=== PATIENT | female | born 1990 | race Caucasian/White ===

== ENCOUNTER 2018-05-30 20:34 | Emergency (ER) | payer OTHER, MEDICAID, SELFPAY ==
[2018-05-30 21:23] VITALS: BP 165/95; PULSE 107; RESP 18; TEMP 39.9; O2SAT 98
[2018-05-30 22:55] VITALS: TEMP 39.9
[2018-05-30] MEDS: KETOROLAC 60 MG/2 ML VIAL IM (22:55)
[2018-05-30 23:12] VITALS: BP 102/80; PULSE 99; RESP 18; TEMP 38.8; O2SAT 96
[2018-05-30 23:23] VITALS: TEMP 38.8
--- NOTE | 2018-05-31 00:03 | ED.FEVER ---
HPI - Fever General Chief Complaint: Fever Stated Complaint: VOMITING, FEVER, SWOLLEN TONSILLS Time Seen by Provider: 05/30/18 23:11 Source: patient Mode of arrival: ambulatory Limitations: no limitations History of Present Illness HPI Narrative: Patient complains of sore throat, fever, and vomiting for the last 2-3 days. 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 However, she has a specific exposure that she knows of. Patient states she is otherwise generally healthy. She denies any runny nose or cough. No chest pain. No shortness of breath. No pain. No dysuria or back pain. No other complaints at this time. She states that her pain is 6/10, and it hurts very much to swallow. Nothing makes the pain better. Related Data Previous Rx's Medication Instructions Recorded azithromycin 500 mg PO DAILY 5 Days tab 05/31/18 Allergies Allergy/AdvReac Type Severity Reaction Status Date / Time Penicillins Allergy Hives Verified 05/30/18 21:22 Review of Systems Constitutional Denies chills, Reports fever(s), Denies lethargy and Denies weakness Eyes Denies change in vision, Denies eye discharge, Denies irritation and Denies loss of vision ENT Ears, Nose, Mouth, and Throat: Denies change in voice, Denies neck pain and Reports sore throat Cardiovascular Denies chest pain, Denies irregular heart rhythm, Denies lightheadedness, Denies palpitations, Denies dyspnea, Denies dyspnea on exertion and Denies orthopnea Respiratory Denies cough, Denies dyspnea, Denies dyspnea on exertion and Denies wheezing Gastrointestinal Gastrointestinal: Denies abdominal pain, Denies change in bowel habits, Denies diarrhea, Denies nausea and Denies vomiting Genitourinary Denies hematuria, Denies flank pain, Denies urinary incontinence and Denies urinary urgency Musculoskeletal Denies neck pain Integumentary/Breasts Denies pruritus, Denies erythema, Denies rash and Denies wounds Neurologic Denies confusion, Denies loss of vision and Denies weakness Psychiatric Denies anxiety, Denies confusion, Denies depression, Denies homicidal ideation and Denies suicidal ideation Endocrine Denies palpitations Hematologic/Lymphatic Denies easy bruising Allergic/Immunologic Denies wheezing [facility] Medical History Healthy adult (Acute) Social History Smoking Status: Current every day smoker Social History Smoking Status: Current every day smoker Exam Initial Vital Signs Initial Vital Signs: Vital Signs Temperature 103.9 F H 05/30/18 21:23 Pulse Rate 107 H 05/30/18 21:23 Respiratory Rate 18 05/30/18 21:23 Blood Pressure 165/95 H 05/30/18 21:23 Pulse Oximetry 98 05/30/18 21:23 Const General: cooperative and well developed Nutritional Appearance: well nourished Orientation: alert, awake, oriented x3 and not confused HENMT Head: normocephalic and atraumatic Ears: external ears normal Nose: external nose normal and No nasal discharge Face and sinus: sinuses nontender, face symmetric, no sinus tenderness and No dry mucous membranes Mouth: oral mucosae normal and moist mucous membranes Teeth and gingiva: dentition normal Throat: uvula midline and abnormal tonsil (Patient has tonsillar erythema and exudates. Tonsils are symmetrical.) Eyes General: appearance normal, both eyes and all related structures Eyelids: eyelids normal Conjunctivae: conjunctivae normal Sclera: sclerae normal Pupils: PERRL EOM: EOM intact bilaterally Neck Neck: normal visual inspection, trachea midline, No lymphadenopathy, No midline deformity and No JVD Lymphatic: No lymphedema Chest Chest: normal inspection of the chest Resp Effort & Inspection: normal respiratory effort, able to speak in complete sentences, no respiratory distress and no use of accessory muscles Auscultation: clear to auscultation bilaterally, no rales, no rhonchi and no wheezes Cardio Rate: regular rate Rhythm: regular rhythm Heart Sounds: no click, no gallops, no murmurs and no rubs Pulses: normal peripheral pulses GI Inspection: non-distended Palpation: soft, no hepatosplenomegaly, No guarding, No pulsatile mass and No tender Auscultation: normal bowel sounds Back/Spine/Pelvis Back: No CVA tenderness Cervical Spine: cervical ROM normal and No pain with cervical ROM Thoracic/Lumbar Spine: thoracic and lumbar spine normal to inspection Skin General: no rashes or lesions noted, No jaundice and No petechiae Neuro General: alert, oriented x3, gait normal and no focal motor deficits Speech: speech normal Extrem General: full ROM, no clubbing, cyanosis or edema, no pedal edema and no calf tenderness Psych Appearance: well kempt Mental Status: mental status grossly normal Attitude: cooperative Thought Content: normal and suicidality Judgment: judgment good Course Course Narrative: Patient was worked up with influenza testing and rapid strep, both which were negative. However, I felt the patient's clinical presentation and physical exam findings were consistent with strep pharyngitis,, and considered the possibility that the patient's symptoms were caused by a strain other than strep A. I did feel she should be treated with antibiotics, given the fever and the appearance of her throat. She was allergic to penicillin family antibiotics so she was started on azithromycin. Orders Ordered: Discontinued Medications Acetaminophen (Tylenol) 650 mg PO NOW ONE Stop: 05/31/18 00:01 Last Admin: 05/31/18 00:04 Dose: 650 mg Azithromycin (Zithromax 200 Mg/5 Ml) 500 mg PO DAILY ELÍAS Azithromycin (Zithromax) 500 mg PO NOW ONE Stop: 05/31/18 00:06 Last Admin: 05/31/18 00:06 Dose: 500 mg Ketorolac Tromethamine (Toradol) 60 mg IM NOW ONE Stop: 05/30/18 22:56 Last Admin: 05/30/18 22:55 Dose: 60 mg Prednisone (Deltasone) 40 mg PO NOW ONE Stop: 05/30/18 23:59 Last Admin: 05/31/18 00:04 Dose: 40 mg Vital Signs - 8 hr 05/30/18 21:23 05/30/18 22:55 05/30/18 23:12 Temperature 103.9 F H 103.9 F H 101.8 F H Pulse Rate 107 H 99 H Respiratory Rate 18 18 Blood Pressure 165/95 H Blood Pressure [Right Arm] 102/80 Pulse Oximetry 98 96 05/30/18 23:23 Temperature 101.9 F H Pulse Rate Respiratory Rate Blood Pressure Blood Pressure [Right Arm] Pulse Oximetry MDM - Fever Medical Records Attestation: I reviewed the patient's medical records. Lab Data Attestation: I reviewed the patient's lab results. Lab Results 05/30/18 Range/Units 22:05 Influenza A & B (PCR) Negative (Negative) Point of Care Testing Rapid Strep A Negative Discharge Plan Departure Patient Disposition: Home Clinical Impression: Strep pharyngitis Discharge Date/Time: 05/31/18 01:31 Interventions: ED Discharge Assessment Last Done: 05/31/18 00:51 Instructions: DI for Strep Throat Activity Restrictions/Additional Instructions: Your influenza test is negative, and her rapid strep test is also negative. However, your symptoms and the appearance of your throat is very much consistent with strep throat, and it is most likely that you either have a different strain of strep in the test evaluate for, or that the rapid strep, which is less accurate had a false negative. You been started on antibiotics for this. Please continue the antibiotics home, until your course is complete. If you do not feel better in a week, please follow up with your primary doctor. Prescriptions: New azithromycin 500 mg tablet 500 mg PO DAILY 5 Days RF: 0 Stand Alone Forms: Work Release Note
[2018-05-31 00:04] VITALS: TEMP 38.8
[2018-05-31] MEDS: ACETAMINOPHEN 325 MG TABLET 650 MG PO (00:04)
[2018-05-31] MEDS: predniSONE 20 MG TABLET 40 MG PO (00:04)
[2018-05-31] MEDS: AZITHROMYCIN 250 MG TABLET 500 MG PO (00:06)
[2018-05-31 00:37] LABS: Influenza A and B by PCR Rapid Negative (Negative)
[2018-05-31 00:51] VITALS: BP 114/95; PULSE 78; O2SAT 98
== END 2018-05-31 01:31 | disposition home or self-care (01) ==
PROVIDERS: Emergency Provider Emergency Medicine
DX: J02.0 Streptococcal pharyngitis (principal)
CPT/HCPCS: 87400; 87880; 96374; 99282; 99284; J1885

== ENCOUNTER 2019-01-24 12:04 | Emergency (ER) | payer OTHER, MEDICAID, SELFPAY ==
[2019-01-24 12:27] VITALS: BP 132/85; PULSE 73; RESP 18; TEMP 36.4; O2SAT 95
--- NOTE | 2019-01-24 14:21 | ED_ITS ---
HPI - Extremity Injury (Lower) General Chief Complaint: Extremity Injury, Lower Stated Complaint: left leg pain from a previous injury Time Seen by Provider: 01/24/19 13:51 Source: patient Mode of arrival: Wheelchair Limitations: no limitations History of Present Illness HPI Narrative: 28F daily smoker, with extensive history of left knee pain since an ACL tear many months ago. She's had appropriate follow up with ortho whom has requested an MRI, but was denied by [facility]. She twisted awkwardly yesterday and has more pain. She presents wearing a hinged knee brace. Denies any direct trauma or high velocity type injury, this was may early twisting. She denies any numbness, tingling or weakness MD complaint: knee injury Onset (ago): day(s) Place: home Severity: moderate Relieving factors: rest Exacerbating factors: movement and palpation Other symptoms: none Related Data Home Medications Medication Instructions Recorded Confirmed buspirone 10 mg PO TID PRN 01/24/19 01/24/19 citalopram 40 mg PO DAILY 01/24/19 01/24/19 clonazepam 1 mg PO BID PRN 01/24/19 01/24/19 hydroxyzine HCl 10 mg PO QID PRN 01/24/19 01/24/19 quetiapine 50 mg PO BEDTIME 01/24/19 01/24/19 Allergies Allergy/AdvReac Type Severity Reaction Status Date / Time Penicillins Allergy Hives Verified 01/24/19 12:31 Review of Systems Constitutional Constitutional: Denies chills, Denies fatigue, Denies fever(s), Denies frequent falls, Denies lethargy and Denies weakness Eyes Eyes: Denies change in vision, Denies eye discharge, Denies irritation and Denies loss of vision ENT Ears, Nose, Mouth, and Throat: Denies change in voice, Denies dizziness, Denies neck pain, Denies sore throat and Denies throat swelling Cardiovascular Cardiovascular: Denies chest pain, Denies irregular heart rhythm, Denies lightheadedness, Denies palpitations, Denies dyspnea, Denies dyspnea on exertion and Denies orthopnea Respiratory Respiratory: Denies cough, Denies dyspnea, Denies dyspnea on exertion and Denies wheezing Gastrointestinal Gastrointestinal: Denies abdominal pain, Denies change in bowel habits, Denies diarrhea, Denies nausea and Denies vomiting Genitourinary Genitourinary: Denies hematuria, Denies flank pain, Denies urinary incontinence and Denies urinary urgency Musculoskeletal Musculoskeletal: Denies back pain, Reports limited range of motion, Denies muscle weakness, Denies neck pain, Denies numbness and Denies tingling Integumentary/Breasts Skin/Breast: Denies pruritus, Denies erythema, Denies rash and Denies wounds Neurologic Neurologic: Denies behavioral changes, Denies confusion, Denies dizziness, Denies frequent falls, Denies loss of vision, Denies numbness, Denies tingling and Denies weakness Psychiatric Psychiatric: Denies anxiety, Denies behavioral changes, Denies confusion, Denies depression, Denies homicidal ideation and Denies suicidal ideation Endocrine Endocrine: Denies fatigue, Denies flushing and Denies palpitations Hematologic/Lymphatic Hematologic/Lymphatic: Denies easy bruising Allergic/Immunologic Allergic/Immunologic: Denies urticaria, Denies throat swelling and Denies wheezing Patient History Medical History Healthy adult (Acute) Social History Smoking Status: Current every day smoker alcohol intake frequency: a few times a week Substance Use Type: does not use Exam Narrative Exam Narrative: GEN: AOx3 and in mild distress EYES: Pupils are equal, round, and reactive to light and accommodation. Extraoccular muscles are intact bilaterally. There is no subconjunctival hemorrhage or exudate. CHEST: Lungs are clear to auscultation bilaterally and free of wheezes, rales, or rhonchi. Heart rate is regular rhythm, there are no murmurs, clicks, rubs, or gallops. There is no chest wall tenderness. ABD: Abdomen is soft and nontender. There is no guarding or rebound. Bowel sounds are normal in all 4 quadrants. There is no mass or organomegaly. EXT: Full but painful range of motion of left knee. No ligamentous laxity or instability. Mild effusion. SKIN: Warm, pink, and dry. No erythema or rash Initial Vital Signs Initial Vital Signs: Vital Signs Temperature 97.6 F 01/24/19 12:27 Pulse Rate 73 01/24/19 12:27 Respiratory Rate 18 01/24/19 12:27 Blood Pressure 132/85 01/24/19 12:27 Pulse Oximetry 95 01/24/19 12:27 Course Orders Ordered: ED Orders 01/24/19 14:59 XR knee LT 3V Stat Discontinued Medications Ketorolac Tromethamine (Toradol) 60 mg IM NOW ONE Stop: 01/24/19 15:36 Last Admin: 01/24/19 15:41 Dose: 60 mg Documented by: ANTHONY Vital Signs Vital signs: Vital Signs - 8 hr 01/24/19 12:27 01/24/19 15:54 Temperature 97.6 F Pulse Rate 73 72 Respiratory Rate 18 Blood Pressure 132/85 Blood Pressure [Left Arm] 117/87 Pulse Oximetry 95 98 MDM - Extremity Injury (Lower) Imaging Data Knee Xray: Radiologist's impression: [address] [address] XRay Report Signed Patient: Yojana Frank [facility]#: [id number] : 1990Acct:[id number] Age/Sex: 28 / FDate of Service: 01/24/19 Loc: ED Accession Number: [id number] Procedure: XR knee LT 3V Ordering Provider: Renato Beebe D.O. PROCEDURE: XR KNEE LT 1TO2V INDICATIONS: Repeat injury of known left MCL injury, increased pain TECHNIQUE: 2 views of the knee were acquired. COMPARISON: Outside Film, CR, XR KNEE 3 VIEWS LEFT, 11/14/2018, 13:58. FINDINGS: Bones: No fractures or dislocations. No suspicious bony lesions. Postsurgical change related to previous ACL reconstruction. Hardware appears intact. There is expected postoperative alignment. Soft tissues: Small joint effusion. IMPRESSION: Postsurgical changes as before. No fracture Small joint effusion, which appears new Dictated by: Fuad Leach M.D. on 01/24/2019 at 15:33 Approved by: Fuad Leach M.D. on 01/24/2019 at 15:35 Discharge Plan Departure Patient Disposition: Home Clinical Impression: Left knee sprain Qualifiers: Encounter type: initial encounter Involved ligament of knee: unspecified ligament Qualified Code(s): S83.92XA - Sprain of unspecified site of left knee, initial encounter Discharge Date/Time: 01/24/19 16:00 Instructions: DI for Knee Pain Activity Restrictions/Additional Instructions: *You have been diagnosed with [acute on chronic left knee pain with reassuring x-ray as interpreted by radiology] *What to do: *Take medications as directed *Follow up with your primary care provider in 2-3 days, call for an appointment. Let them know you were seen in the Emergency Department and that we ask that you be seen in follow up *Return to ER if you should have any new, worsening or concerning symptoms Prescriptions: No Action quetiapine 25 mg tablet 50 mg PO BEDTIME RF: 0 citalopram 40 mg tablet 40 mg PO DAILY RF: 0 clonazepam 1 mg tablet 1 mg PO BID PRN (Reason: Anxiety) RF: 0 buspirone 10 mg tablet 10 mg PO TID PRN (Reason: Anxiety) RF: 0 hydroxyzine HCl 10 mg tablet 10 mg PO QID PRN (Reason: Anxiety) RF: 0
--- NOTE | 2019-01-24 14:59 | DI.RAD.S_ITS ---
PROCEDURE: XR KNEE LT 1TO2V INDICATIONS: Repeat injury of known left MCL injury, increased pain TECHNIQUE: 2 views of the knee were acquired. COMPARISON: Outside Film, CR, XR KNEE 3 VIEWS LEFT, 11/14/2018, 13:58. FINDINGS: Bones: No fractures or dislocations. No suspicious bony lesions. Postsurgical change related to previous ACL reconstruction. Hardware appears intact. There is expected postoperative alignment. Soft tissues: Small joint effusion. IMPRESSION: Postsurgical changes as before. No fracture Small joint effusion, which appears new Dictated by: Fuad Leach M.D. on 01/24/2019 at 15:33 Approved by: Fuad Leach M.D. on 01/24/2019 at 15:35
[2019-01-24] MEDS: KETOROLAC 60 MG/2 ML VIAL IM (15:41)
--- NOTE | 2019-01-24 15:45 | PC.NURSE ---
Pt expressing anger because she is requesting narcotic pain medication and was given toradol. She continues to request narcotics. Discussed non pharmacologic pain control measures as well as managing chronic pain. Pt has a current orthopedic as well as person who is managing her workman's comp claim.
[2019-01-24 15:54] VITALS: BP 117/87; PULSE 72; O2SAT 98
== END 2019-01-24 16:00 | disposition home or self-care (01) ==
PROVIDERS: Emergency Provider Emergency Medicine
DX: S83.92XA Sprain of unspecified site of left knee, initial encounter (principal)
CPT/HCPCS: 73562; 96372; 99282; 99283; J1885

== ENCOUNTER 2020-01-22 20:00 | Emergency (ER) | payer OTHER, MEDICAID, SELFPAY ==
[2020-01-22 20:10] VITALS: BP 159/90; PULSE 110; RESP 16; TEMP 36.9; O2SAT 97; BMI 30.4
--- NOTE | 2020-01-22 20:21 | DI.RAD.S_ITS ---
PROCEDURE: XR KNEE LT 3V INDICATIONS: fall/knee pain TECHNIQUE: 3 views of the knee were acquired. COMPARISON: [facility], CR, XR KNEE ARTHRITIC SERIES LT, 09/10/2019, 15:12. FINDINGS: Bones: No fractures or dislocations. No suspicious bony lesions. Status post ACL repair. Lucency adjacent to orthopedic screw in the proximal tibia is stable compared to prior exam. Soft tissues: No joint effusion. No suspicious soft tissue calcifications. IMPRESSION: No fracture. No acute osseous lesion. If symptoms and/or clinical suspicion for pathology persists, further assessment with repeat radiographs (7-10 days) or advanced imaging (e.g. CT, MRI or bone scan) may be helpful. Dictated by: Aissatou Mars MD, PhD on 01/22/2020 at 20:54 Approved by: Aissatou Mars MD, PhD on 01/22/2020 at 20:55
--- NOTE | 2020-01-22 21:07 | ED.LOWEXIN ---
HPI - Extremity Injury (Lower) General Chief Complaint: Extremity Injury, Lower Stated Complaint: left knee pain Time Seen by Provider: 01/22/20 20:20 History of Present Illness HPI Narrative: 29-year-old woman with a prior history of left knee ACL repair and revision already scheduled presents after tripping over the stairs going up into her house and landing on both knees. Severe pain and swelling of the left knee and she is unable to bear weight. She has no other injuries related to this fall. Related Data Home Medications Medication Instructions Recorded Confirmed buspirone 10 mg PO TID PRN 01/24/19 01/24/19 citalopram 40 mg PO DAILY 01/24/19 01/24/19 clonazepam 1 mg PO BID PRN 01/24/19 01/24/19 hydroxyzine HCl 10 mg PO QID PRN 01/24/19 01/24/19 quetiapine 50 mg PO BEDTIME 01/24/19 01/24/19 Previous Rx's Medication Instructions Recorded oxycodone-acetaminophen 1 tab PO Q8H PRN #10 tab 01/22/20 Allergies Allergy/AdvReac Type Severity Reaction Status Date / Time Penicillins Allergy Hives Verified 01/24/19 12:31 Review of Systems Review of Systems Narrative: Pertinent positive and negative findings as per HPI Remainder of review of systems is otherwise unremarkable for Constitutional: Fevers, chills, weakness ENT: No sore throat, neck pain, ear pain CV: Chest pain, palpitations, dyspnea on exertion Respiratory: Cough, wheeze, dyspnea GI: Nausea, vomiting, diarrhea, : Dysuria, hematuria, flank pain Patient History Medical History Healthy adult (Acute) Surgical History S/P ACL repair (Acute) Social History Smoking Status: Current every day smoker Smoking Status: Current every day smoker alcohol intake frequency: a few times a week Substance Use Type: does not use Exam Narrative Exam Narrative: General: Alert appropriate in no acute distress Respiratory: Able to speak in full sentences, no obvious respiratory distress Skin: No obvious rashes, warm and dry Neurologic: Grossly intact no obvious asymmetries or abnormalities Psych, appropriate insight and affect, cooperative Extremities: Right knee with bruising around the patella with full range of motion no obvious abrasions no effusion mild tenderness only, neurovascularly intact. Left knee with significantly more pain, range of motion testing is difficult because of pain and effusion present but I am concerned that there is quite a bit of medial laxity. Neurovascularly intact distally Initial Vital Signs Initial Vital Signs: Vital Signs Temperature 98.4 F 01/22/20 20:10 Pulse Rate 110 H 01/22/20 20:10 Respiratory Rate 16 01/22/20 20:10 Blood Pressure 159/90 H 01/22/20 20:10 Pulse Oximetry 97 01/22/20 20:10 Course Orders Ordered: ED Orders 01/22/20 20:21 XR knee LT 3V Stat Discontinued Medications Ketorolac Tromethamine (Toradol) 30 mg IM NOW ONE Stop: 01/22/20 20:32 Last Admin: 01/22/20 21:08 Dose: 30 mg Documented by: GLORIA Oxycodone/Acetaminophen (Percocet 5/325) 1 tab PO NOW ONE Stop: 01/22/20 21:18 Last Admin: 01/22/20 21:26 Dose: 1 tab Documented by: GLORIA Oxycodone/Acetaminophen (Endocet 5/325 Prepack) 1 bottle MISC SEEINSTR ONE Stop: 01/22/20 21:18 Last Admin: 01/22/20 21:26 Dose: 1 bottle Documented by: GLORIA Vital Signs Vital signs: Vital Signs - 8 hr 01/22/20 20:10 Temperature 98.4 F Pulse Rate 110 H Respiratory Rate 16 Blood Pressure 159/90 H Pulse Oximetry 97 MDM - Extremity Injury (Lower) Medical Records Attestation: I reviewed the patient's medical records. Imaging Data X-ray left knee: Radiologist's Impression: FINDINGS: Bones: No fractures or dislocations. No suspicious bony lesions. Status post ACL repair. Lucency adjacent to orthopedic screw in the proximal tibia is stable compared to prior exam. Soft tissues: No joint effusion. No suspicious soft tissue calcifications. IMPRESSION: No fracture. No acute osseous lesion. If symptoms and/or clinical suspicion for pathology persists, further assessment with repeat radiographs (7-10 days) or advanced imaging (e.g. CT, MRI or bone scan) may be helpful. Dictated by: Aissatou Mars MD, PhD on 01/22/2020 at 20:54 MDM Narrative Medical decision making narrative: Mechanical injury to the left knee after a fall. No fractures on x-ray concern for medial collateral ligament laxity and setting of and knee that was already problematic and scheduled for ACL and meniscal repair within the next 6 weeks. She has knee brace and crutches to use at home. 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 We had a nice discussion regarding pain control. She has successfully used short doses of narcotics for acute pain and feels comfortable with adding this to her regimen for the next 2-3 days only . She is safe for home discharge Discharge Plan Departure Patient Disposition: Home Clinical Impression: Knee Injury Qualifiers: Encounter type: initial encounter Laterality: left Qualified Code(s): S89.92XA - Unspecified injury of left lower leg, initial encounter Fall Qualifiers: Encounter type: initial encounter Qualified Code(s): W19.XXXA - Unspecified fall, initial encounter Instructions: DI for Knee Pain Activity Restrictions/Additional Instructions: I am sorry that you fell today. Your left knee clearly is injured and your developing an effusion. It does not appear to be blood inside the joint. Your x-ray does not show any acute fractures. You are tender enough that it difficult to do a complete knee exam but I am a bit worried that the inside portion of your knee (the medial collateral ligament) may have been injured. Please keep your scheduled preop appointment on the for anticipated surgery on this knee. Please let the PA note that you did fall, further injury to the knee and x-rays have been done in the emergency department Using 400 mg of ibuprofen (2 [id number] pills) and 1 Tylenol every 6 hours can be very helpful in controlling pain. For more severe pain taking tramadol plus Tylenol can be helpful. And for the pain your experiencing this evening, using to ibuprofen and 1 Percocet every 6 hours will be most effective. Please continue to ice and elevate the knee. You will need to use the knee brace and crutches that you have at home. Once the pain settles down if the knee feels unstable as your walking on it please continue the brace until you are seen by the orthopedist. I hope you heal quickly Prescriptions: New oxycodone-acetaminophen 5-325 mg tablet 1 tab PO Q8H PRN (Reason: pain) Qty: 10 RF: 0 No Action quetiapine 25 mg tablet 50 mg PO BEDTIME RF: 0 citalopram 40 mg tablet 40 mg PO DAILY RF: 0 clonazepam 1 mg tablet 1 mg PO BID PRN (Reason: Anxiety) RF: 0 buspirone 10 mg tablet 10 mg PO TID PRN (Reason: Anxiety) RF: 0 hydroxyzine HCl 10 mg tablet 10 mg PO QID PRN (Reason: Anxiety) RF: 0
[2020-01-22] MEDS: KETOROLAC 60 MG/2 ML VIAL 30 MG IM (21:08)
[2020-01-22] MEDS: OXYCODONE/ACETAMINOPHEN 5/325 TABLET 1 TAB PO (21:26)
[2020-01-22] MEDS: OXYCODONE/APAP 5/325 PREPACK 1 BOTTLE MISC (21:26)
[2020-01-22 21:30] VITALS: BP 126/78; PULSE 88; RESP 16; O2SAT 97
== END 2020-01-22 21:30 | disposition home or self-care (01) ==
PROVIDERS: Emergency Provider Emergency Medicine
DX: S89.92XA Unspecified injury of left lower leg, initial encounter (principal); W10.9XXA Fall (on) (from) unspecified stairs and steps, initial encounter
CPT/HCPCS: 73562; 96372; 99283; J1885

== ENCOUNTER → 2021-03-31 16:04 | Outpatient (CLI) | payer OTHER, MEDICAID, SELFPAY ==
[2021-03-31 16:59] LABS: Influenza A - CEPHEID Flu A NEGATIVE (NEGATIVE); Influenza B - CEPHEID Flu B NEGATIVE (NEGATIVE)
[2021-03-31 17:03] LABS: COVID-19 CEPHEID PCR (VTM/NP) POSITIVE (Negative)
== END ==
PROVIDERS: Referring Provider Physician Assistant; Visit Provider Physician Assistant
DX: U07.1 COVID-19 (principal); J06.9 Acute upper respiratory infection, unspecified; Z20.822 Contact with and (suspected) exposure to COVID-19
CPT/HCPCS: 87502; U0003

== ENCOUNTER → 2021-11-17 17:40 | Outpatient (CLI) | payer OTHER, MEDICAID, SELFPAY ==
--- NOTE | 2021-11-17 17:41 | DI.RAD.S_ITS ---
PROCEDURE: XR RIBS LT MIN 3V W CXR1V INDICATIONS: left posterior rib pain TECHNIQUE: 2 views of the left ribs were acquired, along with a single view chest. COMPARISON: None. FINDINGS: Surgical changes and devices: None. Bones and chest wall: No fractures or dislocations. No suspicious bony lesions. Overlying soft tissues appear unremarkable. Lungs and pleura: No pleural effusions or pneumothorax. Lungs appear clear. Mediastinum: Mediastinal contours appear normal. Heart size is normal. IMPRESSION: No displaced rib fractures. Dictated by: Ton Artis M.D. on 11/17/2021 at 18:41 Approved by: Ton Artis M.D. on 11/17/2021 at 18:42
== END ==
PROVIDERS: PCP Student in an Organized Health Care Education/Training Program; Referring Provider Registered Nurse; Visit Provider Registered Nurse
DX: R07.81 Pleurodynia (principal)
CPT/HCPCS: 71101

== ENCOUNTER 2022-01-31 18:14 | Emergency (ER) | payer OTHER, MEDICAID, SELFPAY ==
[2022-01-31] VITALS (15 sets, daily range): BP systolic 105–160; BP diastolic 56–101; PULSE 65–110; RESP 20–23; TEMP 36.8–38.3; O2SAT 95–97
--- NOTE | 2022-01-31 18:25 | DI.RAD.S_ITS ---
PROCEDURE: XR CHEST 1V INDICATIONS: suspected sepsis TECHNIQUE: One view of the chest was acquired. COMPARISON: [facility], CR, XR RIBS LT MIN 3V W CXR1V, 11/17/2021, 17:53. FINDINGS: Surgical changes and devices: None. Lungs and pleura: No acute consolidation. There is a small nodular opacity projecting over the right mid lung measuring up to 0.7 cm redemonstrated. No pleural effusions or pneumothorax. Mediastinum: Mediastinal contours appear normal. Heart size is normal. Bones and chest wall: No suspicious bony lesions. Overlying soft tissues appear unremarkable. IMPRESSION: 1. No evidence of pneumonia. 2. Small nodular opacity projecting over the right mid lung may represent confluence of vascular and bony structures versus a pulmonary nodule. Finding is unchanged from the prior study. Consider follow-up chest x-ray in 12 months to demonstrate stability. Dictated by: Raman Mueller M.D. on 01/31/2022 at 21:19 Approved by: Raman Mueller M.D. on 01/31/2022 at 21:22
[2022-01-31 18:49] LABS: Add Manual Diff / Slide Review NO; Basophils Absolute Auto 100 /uL (0-100); Basophils Percent Auto 0.4 % (0-2); Eosinophils Absolute Auto 100 /uL (0-450); Eosinophils Percent Auto 0.6 % (2-4); Hematocrit 41.2 % (36-46); Lymphocytes Absolute Auto 2200 /uL (1100-4500); Lymphocytes Percent Auto 16.6 % (25-40); Mean Corpuscular Hemoglobin 29.2 PG (26-34); Mean Corpuscular Volume 85.9 fL (80-100); Monocytes Absolute Auto 1000 /uL (0-900); Monocytes Percent Auto 7.8 % (3-14); Neutrophils Absolute Auto 9800 /uL (1500-7000); Neutrophils Percent Auto 74.6 % (50-75); Platelet Count 289 X10^3/uL (150-400); White Blood Cell Count 13.1 X10^3/uL (4.5-11.0)
--- NOTE | 2022-01-31 18:52 | ED.SEPSIS ---
HPI - Sepsis General Chief Complaint: Abdominal Pain Mode of arrival: Ambulatory Source: patient Evaluation Sepsis Screen: Possible Sepsis Risk Sepsis Infection Criteria Present: Suspected New Infection Narrative: 31-year-old female smoker with non contributory medical history presents with a chief complaint of left lower quadrant pain with some radiation to her back over the past 24 hours or so. She states that the pain comes and goes without any apparent pattern and denies obvious provocation or palliation. She has no dysuria, frequency or urgency but does report blood in her urine. She denies any runny nose, sneezing or cough. She is had no chest pain, shortness of breath. She denies vaginal bleeding or discharge. Review of Systems Review of Systems Narrative: GENERAL: See HPI HEENT: Denies sinus pain, ear pain, sore throat, difficulty swallowing, dizziness. RESPIRATORY: Denies dyspnea, cough, wheezing, hemoptysis, sputum. CARDIOVASCULAR: Denies chest pain, palpitations, orthopnea, edema, GASTROINTESTINAL: See HPI : See HPI MUSCULOSKELETAL: denies weakness, joint pain, or bony pain SKIN: Denies rash, skin lesions, or other NEUROLOGIC: Denies weakness, headache, numbness, change in speech, confusion, seizures, incoordination. PSYCHIATRIC: No concerning psychosocial issues. 12 point review of systems is negative except for those stated above Patient History Medical History (Updated 01/31/22 @ 22:36 by Renato Beebe DO) Healthy adult Surgical History S/P ACL repair Social History Smoking Status: Current every day smoker Smoking Status: Current every day smoker alcohol intake frequency: a few times a week Substance Use Type: does not use Exam Narrative Exam Narrative: GENERAL: [31] year old patient appears stated age. Well-developed patient, in mild distress. Tearful, rubbing her left side, pacing HEAD: Atraumatic. Normocephalic. EYES: Pupils equal round and reactive. Extraocular motions intact. No scleral icterus. No injection or drainage. ENT: Nose without bleeding, purulent drainage. Throat without erythema, tonsillar hypertrophy or exudate. Airway patent. NECK: Trachea midline. Non tender CARDIOVASCULAR: Regular rate and rhythm without murmurs, gallops, or rubs. RESPIRATORY: Clear to auscultation. Breath sounds equal bilaterally. No wheezes, rales, or rhonchi. GASTROINTESTINAL: Abdomen soft, non-tender, nondistended. EXTREMITIES: No edema or joint tenderness. BACK: Nontender without deformity or crepitance. No flank tenderness. NEURO: AOx3. SKIN: No rash or erythema of visible areas Initial Vital Signs Initial Vital Signs: Vital Signs Temperature 101.0 F H 01/31/22 18:21 Pulse Rate 110 H 01/31/22 18:21 Respiratory Rate 22 01/31/22 18:21 Blood Pressure 160/101 H 01/31/22 18:21 Pulse Oximetry 97 01/31/22 18:21 Oxygen Delivery Method 01/31/22 18:21 Course Orders Ordered: ED Orders 01/31/22 19:04 Urine Culture Stat Urine Microscopic Stat 01/31/22 19:20 Blood Culture Stat 01/31/22 19:54 COVID19 -Nasal RAPID/Pre-Proc Stat 01/31/22 20:23 CT kidney ureter bladder (KUB) Stat 01/31/22 21:41 US pelvic complete Stat Discontinued Medications Hydrocodone Bitart/Acetaminophen (Hydrocodone/Acet 5/325 Prepack) 1 bottle MISC SEEINSTR ONE Stop: 01/31/22 21:42 Last Admin: 01/31/22 22:49 Dose: 1 bottle Documented By: MARKOS Hydromorphone HCl (Hydromorphone 0.5 Mg Inj) 0.5 mg IV NOW ONE Stop: 01/31/22 20:11 Last Admin: 01/31/22 20:14 Dose: 0.5 mg Documented By: JALIL Sodium Chloride (Normal Saline 0.9%) 1,000 mls @ 1,000 mls/hr IV BOLUS ONE Stop: 01/31/22 19:24 Last Infusion: 01/31/22 21:10 Dose: 0 mls/hr Documented By: Admin: 01/31/22 19:18 Dose: 1,000 mls/hr Documented By: PRESLEY Lidocaine HCl 6.1 ml/ Sodium (Chloride) 56.1 mls @ 336.6 mls/hr IV NOW ONE Stop: 01/31/22 20:36 Last Infusion: 01/31/22 21:35 Dose: 0 mls/hr Documented By: Admin: 01/31/22 21:22 Dose: 336.6 mls/hr Documented By: MARKOS Ketorolac Tromethamine (Ketorolac 30 Mg/Ml Vial) 15 mg IV NOW ONE Stop: 01/31/22 19:30 Last Admin: 01/31/22 19:35 Dose: 15 mg Documented By: PRESLEY Ondansetron HCl (Ondansetron 4 Mg/2 Ml Inj) 4 mg IV NOW ONE Stop: 01/31/22 18:26 Last Admin: 01/31/22 21:10 Dose: Not Given Documented By: MARKOS Ondansetron HCl (Ondansetron 4 Mg Odt) 4 mg SL NOW ONE Stop: 01/31/22 18:26 Last Admin: 01/31/22 19:34 Dose: Not Given Documented By: PRESLEY Ondansetron HCl (Ondansetron 4 Mg Odt Prepack) 1 bottle MISC SEEINSTR ONE Stop: 01/31/22 21:43 Last Admin: 01/31/22 22:49 Dose: 1 bottle Documented By: MARKOS Vital Signs Vital signs: Vital Signs - 8 hr 01/31/22 20:00 01/31/22 20:00 01/31/22 20:34 Temperature Pulse Rate 74 93 H Respiratory Rate 20 Blood Pressure 116/56 L Pulse Oximetry 96 97 Oxygen Delivery Method Room Air 01/31/22 21:00 01/31/22 21:23 01/31/22 21:23 Temperature Pulse Rate 83 78 Respiratory Rate 20 Blood Pressure 129/60 Pulse Oximetry 95 95 Oxygen Delivery Method 01/31/22 21:30 01/31/22 21:30 01/31/22 22:46 Temperature 98.3 F Pulse Rate 79 Respiratory Rate 23 Blood Pressure 105/72 Pulse Oximetry 96 Oxygen Delivery Method Room Air 01/31/22 22:00 01/31/22 22:30 01/31/22 22:42 Temperature Pulse Rate 74 83 65 Respiratory Rate 20 20 20 Blood Pressure Pulse Oximetry 95 97 Oxygen Delivery Method Room Air 01/31/22 22:42 Temperature Pulse Rate Respiratory Rate Blood Pressure 121/84 Pulse Oximetry Oxygen Delivery Method Sepsis Evaluation (ED) Triage Screening Sepsis Screen: Possible Sepsis Risk Level 1 - Infection Sepsis Infection Criteria Present: Suspected New Infection Response It is my opinion that his patient have a likely infectious etiology for meeting sepsis criteria: Does Not Fluid calculation based on 30 mL/kg within 1hr of criteria: ABW used Antibiotics initiated within 1 hr of Sepis dx: No Tissue Perfusion Reassessed within 6 hrs of infusion start time: No MDM - Sepsis Lab Data Result diagrams: 01/31/22 18:28 01/31/22 18:28 Labs: Lab Results 01/31/22 01/31/22 01/31/22 Range/Units 18:28 18:28 18:28 WBC 13.1 H (4.5-11.0) X10^3/uL RBC 4.80 (4.0-5.2) X10^6/uL Hgb 14.0 (12.0-16.0) g/dL Hct 41.2 (36-46) % MCV 85.9 (80-100) fL MCH 29.2 (26-34) PG MCHC 34.0 (30-36) % RDW 14.0 (11.6-14.8) % Plt Count 289 (150-400) X10^3/uL Neut % (Auto) 74.6 (50-75) % Lymph % (Auto) 16.6 L (25-40) % [place] % (Auto) 7.8 (3-14) % Eos % (Auto) 0.6 L (2-4) % Baso % (Auto) 0.4 (0-2) % Neut # (Auto) 9800 H (3575-6675) /uL Lymph # (Auto) 2200 (1748-7180) /uL [place] # (Auto) 1000 H (0-900) /uL Eos # (Auto) 100 (0-450) /uL Baso # (Auto) 100 (0-100) /uL PT 12.1 (10.1-12.7) SECONDS INR 1.1 (0.9-1.3) APTT 32 (26-36) SECONDS Sodium 136 L (137-145) mmol/L Potassium 3.5 (3.4-5.1) mmol/L Chloride 99 (98-107) mmol/L Carbon Dioxide 27 (22-32) mmol/L BUN 16 (7-17) mg/dL Creatinine 0.70 (0.52-1.04) mg/dL Estimated GFR > 60 (>60) mL/min BUN/Creatinine Ratio 22.9 H (6-22) Glucose 104 H (70-100) mg/dL Lactate (0.7-2.1) mmol/L Calcium 9.7 (8.4-10.2) mg/dL Total Bilirubin 0.5 (0.2-1.3) mg/dL AST 22 (14-36) IU/L ALT 14 (<35) IU/L Alkaline Phosphatase 96 (38-126) U/L Total Protein 8.0 (6.3-8.2) g/dL Albumin 4.8 (3.5-5.0) g/dL Globulin 3.2 (1.7-4.1) g/dL Albumin/Globulin Ratio 1.5 (1.0-2.8) Lipase 248 (23-300) U/L Procalcitonin 0.03 (<0.5) ng/mL Urine RBC (0-5/HPF) Urine WBC (0-5/HPF) Ur Squamous Epith Cells (0-5/HPF) Amorphous Sediment Urine Bacteria (None) Ur Culture Indicated? SARS-CoV-2 (PCR) (Negative) 01/31/22 01/31/22 01/31/22 Range/Units 18:28 19:04 19:54 WBC (4.5-11.0) X10^3/uL RBC (4.0-5.2) X10^6/uL Hgb (12.0-16.0) g/dL Hct (36-46) % MCV (80-100) fL MCH (26-34) PG MCHC (30-36) % RDW (11.6-14.8) % Plt Count (150-400) X10^3/uL Neut % (Auto) (50-75) % Lymph % (Auto) (25-40) % [place] % (Auto) (3-14) % Eos % (Auto) (2-4) % Baso % (Auto) (0-2) % Neut # (Auto) (9319-5043) /uL Lymph # (Auto) (4553-9323) /uL [place] # (Auto) (0-900) /uL Eos # (Auto) (0-450) /uL Baso # (Auto) (0-100) /uL PT (10.1-12.7) SECONDS INR (0.9-1.3) APTT (26-36) SECONDS Sodium (137-145) mmol/L Potassium (3.4-5.1) mmol/L Chloride (98-107) mmol/L Carbon Dioxide (22-32) mmol/L BUN (7-17) mg/dL Creatinine (0.52-1.04) mg/dL Estimated GFR (>60) mL/min BUN/Creatinine Ratio (6-22) Glucose (70-100) mg/dL Lactate 0.8 (0.7-2.1) mmol/L Calcium (8.4-10.2) mg/dL Total Bilirubin (0.2-1.3) mg/dL AST (14-36) IU/L ALT (<35) IU/L Alkaline Phosphatase (38-126) U/L Total Protein (6.3-8.2) g/dL Albumin (3.5-5.0) g/dL Globulin (1.7-4.1) g/dL Albumin/Globulin Ratio (1.0-2.8) Lipase (23-300) U/L Procalcitonin (<0.5) ng/mL Urine RBC 10-30/hpf H (0-5/HPF) Urine WBC 1-5/hpf (0-5/HPF) Ur Squamous Epith Cells 1-5 /hpf (0-5/HPF) Amorphous Sediment 3+ Urine Bacteria Few (2-10) H (None) Ur Culture Indicated? Specimen cultured SARS-CoV-2 (PCR) Negative (Negative) Point of Care Testing Test Results Negative Imaging Data CT scan - abdomen/pelvis: Radiologist's Impression: ? Chart Viewer Diagnostics Subcategory All Activity ??:?? All Time ??:?? All Subcategories Filter Laboratory Imaging Microbiology Pathology Blood Bank Tests Cardiovascular Other Specialty DATE TYPE STATUS REF RANGE/AUTHOR Hx Today 20:23 Abdomen/Pelvis CT Signed Raman Mueller Today 18:25 Chest X-Ray Signed Raman Mueller 11/17/21 17:41 Ribs X-Ray Signed Ton Artis 01/22/20 20:21 Knee X-Ray Signed Aissatou Mars 01/24/19 14:59 Knee X-Ray Signed Fuad Leach Jayla D ED 31, F?1990 MRN#? [id number] REG ER,?Main ED??R07?? 81.193kg ? Abdominal Pain Acc#? [id number] Resus Status Not Ordered No Hx Avail Special Indicators No Data to Display Home Meds Not Confirmed Prescription Monitoring Program Total 52.5 MME/Day Unconfirmed MEDICATIONS (INSTRUCTIONS) LAST TAKEN Active ??buspirone ??10 mgPOTIDPRNAnxiety ??citalopram ??40 mgPODAILY ??clonazepam ??1 mgPOBIDPRNAnxiety ??hydroxyzine HCl ??10 mgPOQIDPRNAnxiety ??methocarbamol 500 mg tablet ??500 mgPOQIDPRNback spasms#20 tabs ??oxycodone-acetaminophen ??1 [id number]#10 tabs 22.5 MME/Day ??oxycodone-acetaminophen 5 mg-325 mg tablet ??1 [id number]#10 tabs 30 MME/Day ??quetiapine ??50 mgPOBEDTIME Allergies Penicillins Hives Problems ? ONSET Rib pain on left side S/P ACL repair Healthy adult Vital Signs Today 21:30 BP 105/72? Pulse 79? Resp 23? O2 Sat 96? Delivery Room Air? Diagnostics Reports Yojana Frank??31??F??1990 ? Allergy/Adv: Penicillins Close Abdomen/Pelvis CT (Signed) MuellerRaman - 01/31/22 Chest X-Ray (Signed) Raman Mueller - 01/31/22 Ribs X-Ray (Signed) Ton Artis - 11/17/21 Knee X-Ray (Signed) Aissatou Mars - 01/22/20 Knee X-Ray (Signed) Fuad Leach - 01/24/19 [place] [address] CT Scan Report Signed Patient: Yojana Frank MR#: [id number] : 1990 Acct:[id number] Age/Sex: 31 / F Date of Service: 01/31/22 Loc: ED Accession Number: [id number] ?? Procedure: CT kidney ureter bladder (KUB) Ordering Provider: Renato Beebe D.O. PROCEDURE:? CT KIDNEY URETER BLADDER (KUB) ? INDICATIONS:? flank pain, hematuria, stone? ? TECHNIQUE:? Axial sections were acquired from the lung bases to the pubic symphysis.? Coronal and sagittal reformats were performed.? For radiation dose reduction, the following was used: ?automated exposure control, adjustment of mA and/or kV according to patient size.? ? COMPARISON:? None. ? FINDINGS:? Image quality:? Excellent.? ? Lung bases:? There is minimal atelectasis.? ? Heart:? Heart is normal in size. ? URINARY: Right Kidney and Ureter: ? No stones or hydronephrosis.? No hydroureter.? ? Left Kidney and Ureter: ? No stones or hydronephrosis.? No hydroureter. ? Bladder:? Normal wall thickness. No stones. ? ? ? ABDOMEN: Liver:? Noncontrast evaluation of the liver demonstrates no discrete? mass. Gallbladder:? Within normal limits without calcified gallstones.? ? Biliary ducts:? No biliary ductal dilatation.? ? Pancreas:? Unremarkable.? ? Spleen:? Normal in size.? ? Adrenal Glands:? No adrenal nodules.? ? ? Stomach and Bowel:? Stomach, small bowel loops, and colon are normal in caliber and wall thickness.? The appendix is normal in appearance.? There is colonic diverticulosis without acute diverticulitis.? Peritoneum:? No abnormal intraperitoneal fluid.? No free air.? ? Ventral Wall: ? No hernia.? Abdominal Nodes:? No retroperitoneal or mesenteric adenopathy by size criteria.? Vessels:? Aorta and inferior vena cava are normal in size.? ? PELVIS: Pelvic Organs:? Unremarkable.? ? Pelvic Nodes: No enlarged lymph nodes.? Miscellaneous: No inguinal hernias identified. ? ? ? Bones:? Visualized osseous structures demonstrate no suspicious focal lesions. ? IMPRESSION:? ? 1. No acute intra-abdominal abnormality.? Specifically, no evidence of nephrolithiasis or obstructive uropathy. ? 2. No evidence of appendicitis. ? 3. Colonic diverticulosis without acute diverticulitis.? ? Dictated by: Raman Mueller M.D. on 01/31/2022 at 21:31 ? ? Approved by: Raman Mueller M.D. on 01/31/2022 at 21:33 ? Chest x-ray: Radiologist's Impression: [address] [address] XRay Report Signed Patient: Yojana Frank MR#: [id number] : 1990 Acct:[id number] Age/Sex: 31 / F Date of Service: 01/31/22 Loc: ED Accession Number: [id number] ?? Procedure: XR chest 1V Ordering Provider: Renato Beebe D.O. PROCEDURE:? XR CHEST 1V ? INDICATIONS:? suspected sepsis ? TECHNIQUE:? One view of the chest was acquired.? ? COMPARISON:? [facility], CR, XR RIBS LT MIN 3V W CXR1V, 11/17/2021, 17:53. ? FINDINGS:? ? Surgical changes and devices:? None.? ? Lungs and pleura:? No acute consolidation.? There is a small nodular opacity projecting over the right mid lung measuring up to 0.7 cm redemonstrated.? No pleural effusions or pneumothorax.? ? Mediastinum:? Mediastinal contours appear normal.? Heart size is normal.? ? Bones and chest wall:? No suspicious bony lesions.? Overlying soft tissues appear unremarkable.? ? IMPRESSION:? ? 1. No evidence of pneumonia. ? 2. Small nodular opacity projecting over the right mid lung may represent confluence of vascular and bony structures versus a pulmonary nodule.? Finding is unchanged from the prior study.? Consider follow-up chest x-ray in 12 months to demonstrate stability.? ? ? Dictated by: Raman Mueller M.D. on 01/31/2022 at 21:19 ? ? Approved by: Raman Mueller M.D. on 01/31/2022 at 21:22 ? MDM Narrative Medical decision making narrative: Multiple etiologies for patient's symptoms considered include, but not limited to: [Pyelonephritis versus kidney stone versus bowel obstruction versus ovarian problem versus other Patient's symptoms improved over duration of stay with above-stated therapies. History, physical exam, labs, imaging, and response to therapies have been reassuring. Findings and discharge diagnosis discussed with patient/family followed by verbalization of understanding Return precautions discussed with patient/family whom verbalize understanding. Pain has been well controlled and patient is tolerating oral hydration. Discharge Plan Departure Patient Disposition: Home Clinical Impression: Abdominal pain, Incidental pulmonary nodule Instructions: Acute Abdominal Pain Activity Restrictions/Additional Instructions: *You have been diagnosed with [abdominal pain without evidence of kidney stone, bowel infection, ovarian problem or urine infection] * As we discussed your history and physical exam as well as labs and imaging are very reassuring. There is no evidence of any severe diagnoses that would require a specific or immediate intervention. *What to do: *Please continue to take your regular medications as directed. [x ] New medication prescriptions sent to your pharmacy: [ ] *Please follow up with your primary care provider in 2-3 days, call for an appointment. Let them know you were seen in the Emergency Department and that we ask that you be seen in follow up. We will electronically transmit a record of today's note if your PCP is in our system * as we discussed your chest x-ray showed no evidence of pneumonia but there is a small nodule that has been there on prior x-rays and is unchanged. It is unclear exactly what this is, however radiology recommends a repeat x-ray in about 1 year to continue to follow it *Please consider a clear liquid diet for the next 24-48 hours and then slowly advance to regular as tolerated. Also, try to avoid alcohol, nicotine, caffeine, spicy, acidic or fatty foods as this may worsen your symptoms *If you do not have a primary care provider please contact the [facility] Resource line at [phone]. They will ask some questions about your medical history and help get you set up with a doctor in the community. *Return to Emergency Department if you should have any new, worsening or concerning symptoms, such as [fever greater than 101 F, shaking chills, worsening pain, persistent vomiting or other bothersome symptoms] Prescriptions: New ketorolac 10 mg tablet 10 mg PO Q6H PRN (Reason: pain) Qty: 14 0RF ondansetron 4 mg tablet,disintegrating 4 mg PO TID-QID PRN (Reason: nausea and vomiting) Qty: 10 0RF No Action methocarbamol 500 mg tablet 500 mg PO QID PRN (Reason: back spasms) Qty: 20 0RF oxycodone-acetaminophen [Percocet] 5-325 mg tablet 1 tab PO Q6H PRN (Reason: pain) Qty: 10 0RF quetiapine 25 mg tablet 50 mg PO BEDTIME citalopram 40 mg tablet 40 mg PO DAILY clonazepam 1 mg tablet 1 mg PO BID PRN (Reason: Anxiety) buspirone 10 mg tablet 10 mg PO TID PRN (Reason: Anxiety) hydroxyzine HCl 10 mg tablet 10 mg PO QID PRN (Reason: Anxiety) oxycodone-acetaminophen 5-325 mg tablet 1 tab PO Q8H PRN (Reason: pain) Qty: 10 0RF Referrals: Chayito Burleson DO [Primary Care Provider] - Visit Report Forms: Patient Portal/API
[2022-01-31 19:01] LABS: INR 1.1 (0.9-1.3); Prothrombin Time 12.1 SECONDS (10.1-12.7)
[2022-01-31 19:03] LABS: PTT Partial Thromboplastin Tim 32 SECONDS (26-36)
[2022-01-31 19:06] LABS: Lactate (Lactic Acid) 0.8 mmol/L (0.7-2.1)
[2022-01-31 19:07] LABS: Alanine Aminotransferase 14 IU/L (<35); Albumin 4.8 g/dL (3.5-5.0); Albumin Globulin Ratio 1.5 (1.0-2.8); Alkaline Phosphatase 96 U/L (38-126); Aspartate Aminotransferase 22 IU/L (14-36); BUN Creatinine Ratio 22.9 (6-22); Bilirubin Total 0.5 mg/dL (0.2-1.3); Blood Urea Nitrogen 16 mg/dL (7-17); Calcium 9.7 mg/dL (8.4-10.2); Carbon Dioxide 27 mmol/L (22-32); Chloride 99 mmol/L (98-107); Estimated Glomerular Filt Rate > 60 mL/min (>60); Globulin 3.2 g/dL (1.7-4.1); Glucose 104 mg/dL (70-100); HEMOLYSIS < 15 (0-50); Lipase 248 U/L (23-300); Potassium 3.5 mmol/L (3.4-5.1); Sodium 136 mmol/L (137-145)
[2022-01-31] MEDS: SODIUM CHLORIDE 0.9% 1,000 ML 1000 ML IV (19:18)
[2022-01-31 19:23] LABS: Procalcitonin 0.03 ng/mL (<0.5)
[2022-01-31] MEDS: KETOROLAC 30 MG/ML VIAL 15 MG IV (19:35)
[2022-01-31 20:09] LABS: Amorphous Sediment Urine 3+; Bacteria Urine Few (2-10); Culture Indicated Urine Specimen Cultured; RBC Urine 10-30/HPF (0-5/HPF); Squamous Epithelial Cell Urine 1-5 /HPF (0-5/HPF); WBC Urine 1-5/HPF (0-5/HPF)
[2022-01-31 20:14] LABS: COVID19 -Nasal RAPID Negative (Negative)
[2022-01-31] MEDS: HYDROMORPHONE 0.5 MG INJ IV (20:14)
--- NOTE | 2022-01-31 20:23 | DI.CT.S_ITS ---
PROCEDURE: CT KIDNEY URETER BLADDER (KUB) INDICATIONS: flank pain, hematuria, stone? TECHNIQUE: Axial sections were acquired from the lung bases to the pubic symphysis. Coronal and sagittal reformats were performed. For radiation dose reduction, the following was used: automated exposure control, adjustment of mA and/or kV according to patient size. COMPARISON: None. FINDINGS: Image quality: Excellent. Lung bases: There is minimal atelectasis. Heart: Heart is normal in size. URINARY: Right Kidney and Ureter: No stones or hydronephrosis. No hydroureter. Left Kidney and Ureter: No stones or hydronephrosis. No hydroureter. Bladder: Normal wall thickness. No stones. ABDOMEN: Liver: Noncontrast evaluation of the liver demonstrates no discrete mass. Gallbladder: Within normal limits without calcified gallstones. Biliary ducts: No biliary ductal dilatation. Pancreas: Unremarkable. Spleen: Normal in size. Adrenal Glands: No adrenal nodules. Stomach and Bowel: Stomach, small bowel loops, and colon are normal in caliber and wall thickness. The appendix is normal in appearance. There is colonic diverticulosis without acute diverticulitis. Peritoneum: No abnormal intraperitoneal fluid. No free air. Ventral Wall: No hernia. Abdominal Nodes: No retroperitoneal or mesenteric adenopathy by size criteria. Vessels: Aorta and inferior vena cava are normal in size. PELVIS: Pelvic Organs: Unremarkable. Pelvic Nodes: No enlarged lymph nodes. Miscellaneous: No inguinal hernias identified. Bones: Visualized osseous structures demonstrate no suspicious focal lesions. IMPRESSION: 1. No acute intra-abdominal abnormality. Specifically, no evidence of nephrolithiasis or obstructive uropathy. 2. No evidence of appendicitis. 3. Colonic diverticulosis without acute diverticulitis. Dictated by: Raman Mueller M.D. on 01/31/2022 at 21:31 Approved by: Raman Mueller M.D. on 01/31/2022 at 21:33
[2022-01-31] MEDS: LIDOCAINE 2% 6.1 ML in SODIUM CHLORIDE 0.9% 50 ML 336.6 ML IV (21:22)
--- NOTE | 2022-01-31 21:41 | DI.US.S_ITS ---
PROCEDURE: US PELVIC COMPLETE INDICATIONS: PAIN TECHNIQUE: Real-time scanning was performed of the pelvic organs, with image documentation. Additional endovaginal scanning was necessary due to incomplete visualization of the adnexal and endometrial structures by transabdominal scanning. COMPARISON: [facility], CT, CT KIDNEY URETER BLADDER (KUB), 01/31/2022, 20:28. FINDINGS: Uterus: Uterus is anteverted and measures 8.5 x 4.4 x 5.0 cm. Endometrium measures up to 0.8 cm. Ovaries: The right ovary measures 3.6 x 2.9 x 1.8 cm, with a calculated ovarian volume of 9.6 cc. The left ovary measures 1.7 x 2.8 x 1.4 cm, with a calculated ovarian volume of 8.4 cc. The ovaries have a normal sonographic appearance. Less than 12 follicles can be seen in each ovary. No adnexal masses are seen. No adnexal masses identified. There is patent arterial flow demonstrated within the left ovary. Other: No pathologic free abdominal or pelvic fluid. IMPRESSION: 1. Normal sonographic study of the pelvis. Specifically, no evidence of left ovarian torsion to correlate with left pelvic pain. We strive to produce accurate, complete, and clear reports of imaging services. To assist us in improving patient care, this report was composed using standard report templates and voice recognition software. Therefore, it may contain abnormal punctuation, insertions and/or omissions. Occasional wrong-word or sound-alike substitutions may occur. Though we review the report and make efforts to correct it, we do recommend that the report be read carefully in proper context to recognize any text inaccuracies. Dictated by: Raman Mueller M.D. on 01/31/2022 at 23:35 Approved by: Raman Mueller M.D. on 01/31/2022 at 23:37
[2022-01-31] MEDS: ONDANSETRON 4 MG ODT PREPACK 1 BOTTLE MISC (22:49)
[2022-01-31] MEDS: HYDROCODONE/ACET 5/325 PREPACK 1 BOTTLE MISC (22:49)
== END 2022-01-31 22:56 | disposition home or self-care (01) ==
PROVIDERS: Emergency Provider Emergency Medicine; PCP Student in an Organized Health Care Education/Training Program
DX: R10.32 Left lower quadrant pain (principal); R31.9 Hematuria, unspecified; R91.1 Solitary pulmonary nodule; Z20.822 Contact with and (suspected) exposure to COVID-19
CPT/HCPCS: 36415; 71045; 74176; 76830; 76856; 80053; 81015; 81025; 83605; 83690; 84145; 85025; 85610; 85730; 87040; 87086; 87635; 93005; 93976; 96361; 96374; 96375; 99284; 99285; C9803; J1170; J1885

== ENCOUNTER → 2022-04-11 13:37 | Outpatient (CLI) | payer OTHER, MEDICAID, SELFPAY ==
[2022-04-11 14:40] LABS: COVID-19 CEPHEID 4-PLEX PCR Negative (Negative); Influenza A - CEPHEID Flu A NEGATIVE (NEGATIVE); Influenza B - CEPHEID Flu B NEGATIVE (NEGATIVE); Respiratory Syncytial Virus Negative (Negative)
== END ==
PROVIDERS: PCP Student in an Organized Health Care Education/Training Program; Visit Provider Physician Assistant Medical
DX: R05.1 Acute cough (principal); J02.9 Acute pharyngitis, unspecified
CPT/HCPCS: 0241U; 87070; 87880

== ENCOUNTER 2022-06-29 08:52 | Emergency (ER) | payer OTHER, MEDICAID, SELFPAY ==
[2022-06-29 09:05] VITALS: BP 134/83; PULSE 93; RESP 18; TEMP 36.7; O2SAT 99; BMI 30.9
--- NOTE | 2022-06-29 10:01 | ED_ITS ---
HPI - Ear Problem General Chief complaint: Ear Stated complaint: extreme Pain in rt ear; losing balance Time Seen by Provider: 06/29/22 09:54 Source: patient Mode of arrival: Ambulatory History of Present Illness HPI Narrative: This is a 31-year-old female with history of migraines and Meniere's disease who presents with complaint of right ear pain, fullness sensation, she feels like there is fluid behind her ear, whooshing sound. Patient had set up appointment with ENT was supposed to be seen today was out 10 minutes late and they would not see her. She has recently been on Cipro orally for ear infection on the right and had completed it. She has not had fevers. She is not having swelling but she is had some persistent drainage from her ear that sort of crusty and yellow, she wears a hearing aid in that right ear. Patient states she has 40% hearing loss on the right she does not describe significant decrease in hearing but more discomfort. Patient states she tries to keep the area clean, she has not been using Q-tips or any foreign objects otherwise. She states she has had some nasal congestion recently. No other cold symptoms. She states her Meniere's she had an episode yesterday and had to leave work early but no other new changes. She denies other symptoms currently. She states she is on Wellbutrin, diuretic for her Meniere's and sumatriptan that she takes as needed for migraines. She is allergic to penicillins. She has been rescheduled for ENT and a month and a half. Related Data Home Medications Medication Instructions Recorded Confirmed buspirone 10 mg tablet 10 mg PO TID PRN Anxiety 01/24/19 04/11/22 citalopram 40 mg tablet 40 mg PO DAILY 01/24/19 04/11/22 clonazepam 1 mg tablet 1 mg PO BID PRN Anxiety 01/24/19 04/11/22 hydroxyzine HCl 10 mg tablet 10 mg PO QID PRN Anxiety 01/24/19 04/11/22 quetiapine 25 mg tablet 50 mg PO BEDTIME 01/24/19 04/11/22 Previous Rx's Medication Instructions Recorded oxycodone-acetaminophen 5 mg-325 1 tab PO Q8H PRN pain #10 tabs 11/12/20 mg tablet methocarbamol 500 mg tablet 500 mg PO QID PRN back spasms #20 11/17/21 tabs oxycodone-acetaminophen 5 mg-325 1 tab PO Q6H PRN pain #10 tabs 11/17/21 mg tablet (Percocet) ketorolac 10 mg tablet 10 mg PO Q6H PRN pain #14 tabs 01/31/22 ondansetron 4 mg disintegrating 4 mg PO TID-QID PRN nausea and 01/31/22 tablet vomiting #10 tabs fluticasone propionate 50 2 spray intranasal DAILY #16 grams 06/29/22 mcg/actuation nasal spray,suspension (Flonase Allergy Relief) ofloxacin 0.3 % ear drops 5 drp EAR-LEFT QID 7 days #5 mL 06/29/22 Allergies Allergy/AdvReac Type Severity Reaction Status Date / Time Penicillins Allergy Hives Verified 04/11/22 13:39 Review of Systems Review of Systems ROS Unobtainable: All systems reviewed & are unremarkable except as noted in HPI and below Patient History Medical History (Updated 06/29/22 @ 10:18 by Quita Garcia DO) Healthy adult Surgical History S/P ACL repair Social History marital status: unmarried,living together Smoking Status: Current every day smoker Smoking Status: Current every day smoker alcohol intake frequency: a few times a week Substance Use Type: does not use Exam Narrative Exam Narrative: GEN: well nourished, well appearing female, alert and oriented x 3, patient appears to be in mild distress. HEENT: Atraumatic, pupils are equal round reactive to light, extraocular movements are intact, nares are clear, right TM has fluid, no bulge, no loss of light reflex, no erythema, canal has some slight erythema and swelling no active drainage TM appears intact. On the left patient's TM is intact with no erythema, fluid or bulge. There is a slight amount of cerumen, canal appears normal, there is no swelling, erythema or changes to the pinna, patient has hearing aid in the right which she removes for exam. Throat is clear without any exudates, erythema, tonsillar enlargement or uvular deviation HEART: Regular rate and rhythm without murmur, clicks, rubs. LUNGS:Lungs clear to auscultation, no wheezes, rales, crackles, chest moves symmetrically MSCL: Non-tender, no muscle atrophy, muscles strength 5/5 upper and lower extremities, full range of motion, normal gait NEURO:CN 2-12 intact, sensation normal SKIN: No rash, erythema or other skin changes. Initial Vital Signs Initial Vital Signs: Vital Signs Temperature 98.1 F 06/29/22 09:05 Pulse Rate 93 H 06/29/22 09:05 Respiratory Rate 18 06/29/22 09:05 Blood Pressure 134/83 06/29/22 09:05 Pulse Oximetry 99 06/29/22 09:05 Oxygen Delivery Method Room Air 06/29/22 09:05 Course Orders Ordered: Discontinued Medications Ketorolac Tromethamine (Ketorolac 30 Mg/Ml Vial) 30 mg IM NOW ONE Stop: 06/29/22 10:11 Last Admin: 06/29/22 10:27 Dose: 30 mg Documented By: CESIA Vital Signs Vital signs: Vital Signs - 8 hr 06/29/22 09:05 Temperature 98.1 F Pulse Rate 93 H Respiratory Rate 18 Blood Pressure 134/83 Pulse Oximetry 99 Oxygen Delivery Method Room Air Medical Decision Making [facility] Narrative Medical decision making narrative: This is a 31-year-old female with Meniere's disease which is likely contributing to some of her symptoms, she does have fluid but no signs of infection in terms of otitis media. The canal is slightly erythematous and swollen but able to easily see the TM. Discussed with patient there may be some irritation but would treat for possible otitis externa, Flonase for the fluid behind her ear to help open her eustachian tubes and return for follow-up with ENT. Patient was given a dose of Toradol for pain and discomfort. Discharge Plan Departure Patient Disposition: Home Clinical Impression: Otitis externa Instructions: DI for Otitis Externa Activity Restrictions/Additional Instructions: Please follow-up for recheck. Use antibiotic eye drops as directed x7 days. Use Flonase 1-2 sprays to each nostril once daily. Prescription sent to [email or web address] [facility] Please return for rapidly worsening symptoms, sudden decrease in hearing, bloody drainage, uncontrolled pain or other new or concerning changes. Prescriptions: New fluticasone propionate [Flonase Allergy Relief] 50 mcg/actuation spray,suspension 2 spray intranasal DAILY Qty: 16 0RF Rx Instructions: administer into each nostril ofloxacin 0.3 % drops 5 drp EAR-LEFT QID 7 Days Qty: 5 0RF No Action methocarbamol 500 mg tablet 500 mg PO QID PRN (Reason: back spasms) Qty: 20 0RF oxycodone-acetaminophen [Percocet] 5-325 mg tablet 1 tab PO Q6H PRN (Reason: pain) Qty: 10 0RF quetiapine 25 mg tablet 50 mg PO BEDTIME citalopram 40 mg tablet 40 mg PO DAILY clonazepam 1 mg tablet 1 mg PO BID PRN (Reason: Anxiety) buspirone 10 mg tablet 10 mg PO TID PRN (Reason: Anxiety) hydroxyzine HCl 10 mg tablet 10 mg PO QID PRN (Reason: Anxiety) oxycodone-acetaminophen 5-325 mg tablet 1 tab PO Q8H PRN (Reason: pain) Qty: 10 0RF ketorolac 10 mg tablet 10 mg PO Q6H PRN (Reason: pain) Qty: 14 0RF ondansetron 4 mg tablet,disintegrating 4 mg PO TID-QID PRN (Reason: nausea and vomiting) Qty: 10 0RF Referrals: Chayito Burleson DO [Primary Care Provider] - José Miguel Ramon MD [Physician] - Stand Alone Forms: Patient Portal/API, Work Release Note
[2022-06-29] MEDS: KETOROLAC 30 MG/ML VIAL IM (10:27)
[2022-06-29 10:30] VITALS: PULSE 80; RESP 18; O2SAT 98
== END 2022-06-29 10:40 | disposition home or self-care (01) ==
PROVIDERS: Emergency Provider Emergency Medicine; PCP Student in an Organized Health Care Education/Training Program
DX: H60.91 Unspecified otitis externa, right ear (principal)
CPT/HCPCS: 96372; 99283; J1885

== ENCOUNTER 2022-11-22 11:56 | Emergency (ER) | payer OTHER, SELFPAY ==
[2022-11-22] VITALS (12 sets, daily range): BP systolic 127–157; BP diastolic 66–98; PULSE 66–90; RESP 18–94; TEMP 37.1; O2SAT 95–100; BMI 27.6
[2022-11-22 12:20] LABS: Appearance Urine UA Clear; Color Urine UA ORANGE
[2022-11-22 12:24] LABS: Bacteria Urine Few (2-10); Culture Indicated Urine Specimen Cultured; RBC Urine 1-5/HPF (0-5/HPF); Squamous Epithelial Cell Urine 1-5 /HPF (0-5/HPF); WBC Urine 1-5/HPF (0-5/HPF)
[2022-11-22 14:17] LABS: Pregnancy Test Urine Negative (Negative)
--- NOTE | 2022-11-22 14:25 | DI.US.S_ITS ---
PROCEDURE: US RENAL COMPLETE INDICATIONS: LEFT FLANK PAIN WITH HEMATURIA. HISTORY OF NEPHROLITHIASIS. TECHNIQUE: Real-time scanning was performed of the kidneys and bladder, with image documentation. COMPARISON: None. FINDINGS: Kidneys: Kidneys are normal in size. Right kidney measures 10.4 cm long; left kidney measures 9.6 cm long. Right renal cortical thickness is 1.3 cm; left renal cortical thickness is 2.0 cm. Renal cortical echotexture is normal. No hydronephrosis or nephrolithiasis. No suspicious solid mass lesions. Bladder: Patient voided just prior to exam Post-void residual is 27 mL. Pre-void images demonstrate no intraluminal masses or stones. Ureteral jets not seen. Of note, ureteral jets may not be detectable in up to 25% of cases due to insufficient differences in specific gravity between ureteral and bladder urine). Miscellaneous: No free pelvic fluid. IMPRESSION: The kidneys are normal in appearance without hydronephrosis or nephrolithiasis. Dictated by: Eulogio Villar M.D. on 11/22/2022 at 15:43 Approved by: Eulogio Villar M.D. on 11/22/2022 at 15:46
[2022-11-22] MEDS: OXYCODONE IR 5 MG TABLET PO (14:28)
--- NOTE | 2022-11-22 14:28 | ED.FEMALEGU ---
HPI - Female Genitourinary <Melinda Og PA-C - Last Filed: 11/22/22 18:14> General Chief complaint: Urogenital-Female Stated complaint: states passing a kidney stone Time Seen by Provider: 11/22/22 14:02 Source: patient Mode of arrival: Ambulatory History of Present Illness HPI Narrative: Patient is a 31 year female who presents with right flank pain that radiates into her abdomen. She reports it feels like sharp of glass when she tries to pee. She is a history of passing 1 kidney stone and states this feels very similar. She has no fever or chills, no cough, no chest pain, no nausea or vomiting, no constipation or diarrhea. She reports gross hematuria since this morning and shows me a picture of her urine on her phone, which appears quite orange. She states she has taken an [id number] urinary pain medicine. She took ibuprofen this morning. Related Data Home Medications Medication Instructions Recorded Confirmed buspirone 10 mg tablet 10 mg PO TID PRN Anxiety 01/24/19 04/11/22 citalopram 40 mg tablet 40 mg PO DAILY 01/24/19 04/11/22 clonazepam 1 mg tablet 1 mg PO BID PRN Anxiety 01/24/19 04/11/22 hydroxyzine HCl 10 mg tablet 10 mg PO QID PRN Anxiety 01/24/19 04/11/22 quetiapine 25 mg tablet 50 mg PO BEDTIME 01/24/19 04/11/22 Previous Rx's Medication Instructions Recorded oxycodone-acetaminophen 5 mg-325 1 tab PO Q8H PRN pain #10 tabs 01/22/20 mg tablet methocarbamol 500 mg tablet 500 mg PO QID PRN back spasms #20 11/17/21 tabs oxycodone-acetaminophen 5 mg-325 1 tab PO Q6H PRN pain #10 tabs 11/17/21 mg tablet (Percocet) ketorolac 10 mg tablet 10 mg PO Q6H PRN pain #14 tabs 01/31/22 ondansetron 4 mg disintegrating 4 mg PO TID-QID PRN nausea and 01/31/22 tablet vomiting #10 tabs fluticasone propionate 50 2 spray intranasal DAILY #16 grams 06/29/22 mcg/actuation nasal spray,suspension (Flonase Allergy Relief) hyoscyamine sulfate 0.125 mg 0.125 mg PO BID-QID PRN dyspepsia 11/22/22 disintegrating tablet #7 tabs ondansetron 4 mg disintegrating 4 mg PO Q6H PRN nausea and 11/22/22 tablet vomiting #10 tabs Allergies Allergy/AdvReac Type Severity Reaction Status Date / Time Penicillins Allergy Hives Verified 11/22/22 12:08 Review of Systems <Melinda Og PA-C - Last Filed: 11/22/22 18:14> Review of Systems ROS Unobtainable: All systems reviewed & are unremarkable except as noted in HPI and below Patient History <Melinda Og PA-C - Last Filed: 11/22/22 18:14> Medical History (Updated 11/22/22 @ 18:08 by Melinda Og PA-C) Healthy adult Surgical History S/P ACL repair alcohol intake frequency: a few times a week Substance Use Type: does not use Exam <Melinda Og PA-C - Last Filed: 11/22/22 18:14> Narrative Exam Narrative: GENERAL: 31 year old patient appears stated age. Well-developed patient, in moderate distress. Appears uncomfortable in her chair. NEURO: AOx3. HEAD: Atraumatic. Normocephalic. EYES: Pupils equal round and reactive. Extraocular motions intact. No scleral icterus. No injection or drainage. CARDIOVASCULAR: Regular rate and rhythm without murmurs, gallops, or rubs. RESPIRATORY: No distress GASTROINTESTINAL: Abdomen soft, nondistended. Not tender to palpation but patient is guarding her abdomen, states right is worse than left. positive CVA tenderness on the right EXTREMITIES: No edema or joint tenderness. SKIN: No rash or erythema of visible areas Initial Vital Signs Initial Vital Signs: Vital Signs Temperature 98.7 F 11/22/22 12:02 Pulse Rate 90 11/22/22 12:02 Respiratory Rate 18 11/22/22 12:02 Blood Pressure 132/91 H 11/22/22 12:02 Pulse Oximetry 96 11/22/22 12:02 Oxygen Delivery Method Room Air 11/22/22 12:02 <Mahad Kaur MD - Last Filed: 11/30/22 08:32> Initial Vital Signs Initial Vital Signs: Vital Signs Temperature 98.7 F 11/22/22 12:02 Pulse Rate 90 11/22/22 12:02 Respiratory Rate 18 11/22/22 12:02 Blood Pressure 132/91 H 11/22/22 12:02 Pulse Oximetry 96 11/22/22 12:02 Oxygen Delivery Method Room Air 11/22/22 12:02 Course <Melinda Og PA-C - Last Filed: 11/22/22 18:14> Orders Ordered: Discontinued Medications Dicyclomine HCl (Dicyclomine 10 Mg Capsule) 10 mg PO NOW ONE Stop: 11/22/22 15:56 Last Admin: 11/22/22 16:07 Dose: 10 mg Documented By: SOLANGE Hydromorphone HCl (Hydromorphone 0.5 Mg Inj) 0.5 mg IV NOW ONE Stop: 11/22/22 15:25 Last Admin: 11/22/22 15:35 Dose: 0.5 mg Documented By: SOLANGE Hydromorphone HCl (Hydromorphone 0.5 Mg Inj) 0.5 mg IV NOW ONE Stop: 11/22/22 15:56 Last Admin: 11/22/22 16:07 Dose: 0.5 mg Documented By: SOLANGE Sodium Chloride (Normal Saline 0.9%) 1,000 mls @ 1,000 mls/hr IV BOLUS ONE Stop: 11/22/22 16:06 Last Infusion: 11/22/22 16:51 Dose: 0 mls/hr Documented By: Admin: 11/22/22 15:35 Dose: 1,000 mls/hr Documented By: SOLANGE Ketorolac Tromethamine (Ketorolac 30 Mg/Ml Vial) 15 mg IM NOW ONE Stop: 11/22/22 14:25 Last Admin: 11/22/22 14:29 Dose: 15 mg Documented By: JANEY Metoclopramide HCl (Metoclopramide 10 Mg/2 Ml Inj) 10 mg IV NOW ONE Stop: 11/22/22 16:33 Last Admin: 11/22/22 18:16 Dose: 10 mg Documented By: SOLANGE Ondansetron HCl (Ondansetron 4 Mg Odt) 4 mg SL NOW PRN PRN Reason: Nausea And Vomiting Last Admin: 11/22/22 14:33 Dose: 4 mg Documented By: JANEY Oxycodone HCl (Oxycodone Ir 5 Mg Tablet) 5 mg PO NOW ONE Stop: 11/22/22 14:25 Last Admin: 11/22/22 14:28 Dose: 5 mg Documented By: JANEY Vital Signs Vital signs: Vital Signs - 8 hr 11/22/22 12:02 11/22/22 14:02 11/22/22 15:16 Temperature 98.7 F Pulse Rate 90 77 Respiratory Rate 18 94 H Blood Pressure 132/91 H 127/66 157/98 H Pulse Oximetry 96 Oxygen Delivery Method Room Air 11/22/22 15:16 11/22/22 15:37 11/22/22 15:43 Temperature Pulse Rate 78 Respiratory Rate Blood Pressure 136/97 H Pulse Oximetry 95 97 Oxygen Delivery Method 11/22/22 15:43 11/22/22 16:00 11/22/22 16:30 Temperature Pulse Rate 85 73 71 Respiratory Rate Blood Pressure Pulse Oximetry 95 96 97 Oxygen Delivery Method <Mahad Kaur MD - Last Filed: 11/30/22 08:32> Orders Ordered: Discontinued Medications Dicyclomine HCl (Dicyclomine 10 Mg Capsule) 10 mg PO NOW ONE Stop: 11/22/22 15:56 Last Admin: 11/22/22 16:07 Dose: 10 mg Documented By: SOLANGE Hydromorphone HCl (Hydromorphone 0.5 Mg Inj) 0.5 mg IV NOW ONE Stop: 11/22/22 15:25 Last Admin: 11/22/22 15:35 Dose: 0.5 mg Documented By: SOLANGE Hydromorphone HCl (Hydromorphone 0.5 Mg Inj) 0.5 mg IV NOW ONE Stop: 11/22/22 15:56 Last Admin: 11/22/22 16:07 Dose: 0.5 mg Documented By: SOLANGE Sodium Chloride (Normal Saline 0.9%) 1,000 mls @ 1,000 mls/hr IV BOLUS ONE Stop: 11/22/22 16:06 Last Infusion: 11/22/22 16:51 Dose: 0 mls/hr Documented By: Admin: 11/22/22 15:35 Dose: 1,000 mls/hr Documented By: SOLANGE Ketorolac Tromethamine (Ketorolac 30 Mg/Ml Vial) 15 mg IM NOW ONE Stop: 11/22/22 14:25 Last Admin: 11/22/22 14:29 Dose: 15 mg Documented By: JANEY Metoclopramide HCl (Metoclopramide 10 Mg/2 Ml Inj) 10 mg IV NOW ONE Stop: 11/22/22 16:33 Last Admin: 11/22/22 18:16 Dose: 10 mg Documented By: SOLANGE Ondansetron HCl (Ondansetron 4 Mg Odt) 4 mg SL NOW PRN PRN Reason: Nausea And Vomiting Last Admin: 11/22/22 14:33 Dose: 4 mg Documented By: JANEY Oxycodone HCl (Oxycodone Ir 5 Mg Tablet) 5 mg PO NOW ONE Stop: 11/22/22 14:25 Last Admin: 11/22/22 14:28 Dose: 5 mg Documented By: JANEY Vital Signs Vital signs: Vital Signs - 8 hr 11/22/22 12:02 11/22/22 14:02 11/22/22 15:16 Temperature 98.7 F Pulse Rate 90 77 Respiratory Rate 18 94 H Blood Pressure 132/91 H 127/66 157/98 H Pulse Oximetry 96 Oxygen Delivery Method Room Air 11/22/22 15:16 11/22/22 15:37 11/22/22 15:43 Temperature Pulse Rate 78 Respiratory Rate Blood Pressure 136/97 H Pulse Oximetry 95 97 Oxygen Delivery Method 11/22/22 15:43 11/22/22 16:00 11/22/22 16:30 Temperature Pulse Rate 85 73 71 Respiratory Rate Blood Pressure Pulse Oximetry 95 96 97 Oxygen Delivery Method MDM - Female Genitourinary <Melinda Og PA-C - Last Filed: 11/22/22 18:14> Lab Data 11/22/22 15:19 11/22/22 15:19 Labs: Lab Results 11/22/22 11/22/22 11/22/22 Range/Units 12:13 14:11 15:19 WBC 12.8 H (4.5-11.0) X10^3/uL RBC 4.31 (4.0-5.2) X10^6/uL Hgb 12.4 (12.0-16.0) g/dL Hct 36.7 (36-46) % MCV 85.2 (80-100) fL MCH 28.7 (26-34) PG MCHC 33.7 (30-36) % RDW 13.0 (11.6-14.8) % Plt Count 241 (150-400) X10^3/uL Neut % (Auto) 74.4 (50-75) % Lymph % (Auto) 18.3 L (25-40) % Morrison % (Auto) 5.6 (3-14) % Eos % (Auto) 1.0 L (2-4) % Baso % (Auto) 0.7 (0-2) % Neut # (Auto) 9500 H (4556-2335) /uL Lymph # (Auto) 2300 (2563-9368) /uL Morrison # (Auto) 700 (0-900) /uL Eos # (Auto) 100 (0-450) /uL Baso # (Auto) 100 (0-100) /uL Sodium (137-145) mmol/L Potassium (3.4-5.1) mmol/L Chloride (98-107) mmol/L Carbon Dioxide (22-32) mmol/L BUN (7-17) mg/dL Creatinine (0.52-1.04) mg/dL Estimated GFR (>60) mL/min BUN/Creatinine Ratio (6-22) Glucose (70-100) mg/dL Calcium (8.4-10.2) mg/dL Lipase (23-300) U/L Urine Color [place] Urine Appearance Clear Urine pH TNP Ur Specific [place] TNP Urine Protein TNP Urine Glucose (UA) TNP Urine Ketones TNP Urine Occult Blood TNP Urine Nitrate TNP Urine Bilirubin TNP Urine Urobilinogen TNP Ur Leukocyte Esterase TNP Urine RBC 1-5/hpf D (0-5/HPF) Urine WBC 1-5/hpf (0-5/HPF) Ur Squamous Epith Cells 1-5 /hpf (0-5/HPF) Urine Bacteria Few (2-10) H (None) Ur Culture Indicated? Specimen cultured Urine Test Negative (Negative) 11/22/22 Range/Units 15:19 WBC (4.5-11.0) X10^3/uL RBC (4.0-5.2) X10^6/uL Hgb (12.0-16.0) g/dL Hct (36-46) % MCV (80-100) fL MCH (26-34) PG MCHC (30-36) % RDW (11.6-14.8) % Plt Count (150-400) X10^3/uL Neut % (Auto) (50-75) % Lymph % (Auto) (25-40) % Morrison % (Auto) (3-14) % Eos % (Auto) (2-4) % Baso % (Auto) (0-2) % Neut # (Auto) (2681-6434) /uL Lymph # (Auto) (6735-0344) /uL Morrison # (Auto) (0-900) /uL Eos # (Auto) (0-450) /uL Baso # (Auto) (0-100) /uL Sodium 135 L (137-145) mmol/L Potassium 3.2 L (3.4-5.1) mmol/L Chloride 101 (98-107) mmol/L Carbon Dioxide 24 (22-32) mmol/L BUN 15 (7-17) mg/dL Creatinine 0.68 (0.52-1.04) mg/dL Estimated GFR > 60 (>60) mL/min BUN/Creatinine Ratio 22.1 H (6-22) Glucose 93 (70-100) mg/dL Calcium 9.3 (8.4-10.2) mg/dL Lipase 123 (23-300) U/L Urine Color Urine Appearance Urine pH Ur Specific [place] Urine Protein Urine Glucose (UA) Urine Ketones Urine Occult Blood Urine Nitrate Urine Bilirubin Urine Urobilinogen Ur Leukocyte Esterase Urine RBC (0-5/HPF) Urine WBC (0-5/HPF) Ur Squamous Epith Cells (0-5/HPF) Urine Bacteria (None) Ur Culture Indicated? Urine Test (Negative) Imaging Data CT scan - abdomen/pelvis: Radiologist's Impression: PROCEDURE:? CT ABDOMEN PELVIS W CON ? INDICATIONS:? abdominal pain ? TECHNIQUE:? After the administration of IV contrast, axial sections were acquired from the lung bases to the pubic symphysis.? Coronal and sagittal reformats were performed.? For radiation dose reduction, the following was used:? automated exposure control, adjustment of mA and/or kV according to patient size. ? COMPARISON:? [facility], RENAL COMPLETE, 11/22/2022, 14:55.? [facility], US, US PELVIC COMPLETE, 01/31/2022, 22:15.? [facility], CT, CT KIDNEY URETER BLADDER (KUB), 01/31/2022, 20:28. ? FINDINGS:? Image quality:? Excellent.? ? Lung bases:? Unremarkable.? ? Heart:? No significant findings. ? ? ABDOMEN: Liver:? Mild hepatic steatosis. Gallbladder:? Unremarkable.? ? Biliary ducts:? Unremarkable.? ? Pancreas:? Unremarkable.? ? Spleen:? Unremarkable.? ? Adrenal Glands:? Unremarkable.? ? Kidneys and Ureters:? Unremarkable.? ? ? Stomach and Bowel:? Stomach, small bowel loops, and colon are unremarkable.? Appendix is normal. Peritoneum:? No abnormal intraperitoneal fluid.? No free air.? ? Ventral Wall: ? No hernia.? Abdominal Nodes:? No retroperitoneal or mesenteric adenopathy by size criteria.? Vessels:? Aorta and inferior vena cava are normal in size.? ? PELVIS: Pelvic Organs:? Unremarkable.? ? Bladder:? Unremarkable.? ? Pelvic Nodes: No enlarged lymph nodes.? Miscellaneous: No inguinal hernias are seen. ? ? ? Bones:? Unremarkable.? IMPRESSION:? ? No visualized acute intra-abdominal or pelvic process. ? ? Dictated by: Yamile Monzon M.D. on 11/22/2022 at 17:08 ? ? Approved by: Yamile Monzon M.D. on 11/22/2022 at 17:10 ? US - abdomen: Radiologist's Impression: PROCEDURE:? US RENAL COMPLETE ? INDICATIONS:? LEFT FLANK PAIN WITH HEMATURIA. HISTORY OF NEPHROLITHIASIS. ? TECHNIQUE:? Real-time scanning was performed of the kidneys and bladder, with image documentation.? ? COMPARISON:? None. ? FINDINGS:? ? Kidneys:? Kidneys are normal in size.? Right kidney measures 10.4 cm long; left kidney measures 9.6 cm long.? Right renal cortical thickness is 1.3 cm; left renal cortical thickness is 2.0 cm.? Renal cortical echotexture is normal.? No hydronephrosis or nephrolithiasis.? No suspicious solid mass lesions.? ? Bladder:? Patient voided just prior to exam Post-void residual is 27 mL.? Pre-void images demonstrate no intraluminal masses or stones.? Ureteral jets not seen.? Of note, ureteral jets may not be detectable in up to 25% of cases due to insufficient differences in specific gravity between ureteral and bladder urine).? ? Miscellaneous:? No free pelvic fluid.? ? IMPRESSION:? ? The kidneys are normal in appearance without hydronephrosis or nephrolithiasis. ? ? Dictated by: Eulogio Villar M.D. on 11/22/2022 at 15:43 ? ? Approved by: Eulogio Villar M.D. on 11/22/2022 at 15:46 ? MDM Narrative Medical decision making narrative: Multiple etiologies for patient's symptoms considered including, but not limited to: Kidney stone, UTI, pyelonephritis, cystitis, ectopic , ovarian torsion, appendicitis, diverticulitis. test is negative, urine is unremarkable with a small amount of bacteria. She does have a small elevation of her white blood cell count on her labs and a very mild degree of hypokalemia. Based on her history and symptoms, we will check renal ultrasound to look for evidence of stone or hydronephrosis. Pain controlled with IM ketorolac and oral oxycodone. Ultrasound is negative for kidney stones or hydronephrosis. Obtained CT abdomen pelvis with contrast which shows no clinically significant abnormality. During her stay patient continued to complain of significant pain and intermittent nausea, for which medication was given. Her vital signs remained normal and she remains afebrile. Between procedures and reassessments, she is ambulating around the unit and does not appear to be in distress. Discussed with patient that we have ruled out causes of her pain that would require immediate intervention and I suspect she has a viral enteritis; we will prescribe nausea medicine and medication for abdominal spasm, advised supportive care and liquid diet until feeling better. Patient's symptoms improved over duration of stay with above-stated therapies. Findings and discharge diagnosis discussed with patient/family followed by verbalization of understanding Return precautions discussed with patient/family whom verbalize understanding of diagnosis and plan <Mahad Kaur MD - Last Filed: 11/30/22 08:32> Lab Data Labs: Lab Results 11/22/22 11/22/22 11/22/22 Range/Units 12:13 14:11 15:19 WBC 12.8 H (4.5-11.0) X10^3/uL RBC 4.31 (4.0-5.2) X10^6/uL Hgb 12.4 (12.0-16.0) g/dL Hct 36.7 (36-46) % MCV 85.2 (80-100) fL MCH 28.7 (26-34) PG MCHC 33.7 (30-36) % RDW 13.0 (11.6-14.8) % Plt Count 241 (150-400) X10^3/uL Neut % (Auto) 74.4 (50-75) % Lymph % (Auto) 18.3 L (25-40) % Morrison % (Auto) 5.6 (3-14) % Eos % (Auto) 1.0 L (2-4) % Baso % (Auto) 0.7 (0-2) % Neut # (Auto) 9500 H (9509-2221) /uL Lymph # (Auto) 2300 (3076-3892) /uL Morrison # (Auto) 700 (0-900) /uL Eos # (Auto) 100 (0-450) /uL Baso # (Auto) 100 (0-100) /uL Sodium (137-145) mmol/L Potassium (3.4-5.1) mmol/L Chloride (98-107) mmol/L Carbon Dioxide (22-32) mmol/L BUN (7-17) mg/dL Creatinine (0.52-1.04) mg/dL Estimated GFR (>60) mL/min BUN/Creatinine Ratio (6-22) Glucose (70-100) mg/dL Calcium (8.4-10.2) mg/dL Lipase (23-300) U/L Urine Color [place] Urine Appearance Clear Urine pH TNP Ur Specific [place] TNP Urine Protein TNP Urine Glucose (UA) TNP Urine Ketones TNP Urine Occult Blood TNP Urine Nitrate TNP Urine Bilirubin TNP Urine Urobilinogen TNP Ur Leukocyte Esterase TNP Urine RBC 1-5/hpf D (0-5/HPF) Urine WBC 1-5/hpf (0-5/HPF) Ur Squamous Epith Cells 1-5 /hpf (0-5/HPF) Urine Bacteria Few (2-10) H (None) Ur Culture Indicated? Specimen cultured Urine Test Negative (Negative) 11/22/22 Range/Units 15:19 WBC (4.5-11.0) X10^3/uL RBC (4.0-5.2) X10^6/uL Hgb (12.0-16.0) g/dL Hct (36-46) % MCV (80-100) fL MCH (26-34) PG MCHC (30-36) % RDW (11.6-14.8) % Plt Count (150-400) X10^3/uL Neut % (Auto) (50-75) % Lymph % (Auto) (25-40) % Morrison % (Auto) (3-14) % Eos % (Auto) (2-4) % Baso % (Auto) (0-2) % Neut # (Auto) (5546-4845) /uL Lymph # (Auto) (0460-3613) /uL Morrison # (Auto) (0-900) /uL Eos # (Auto) (0-450) /uL Baso # (Auto) (0-100) /uL Sodium 135 L (137-145) mmol/L Potassium 3.2 L (3.4-5.1) mmol/L Chloride 101 (98-107) mmol/L Carbon Dioxide 24 (22-32) mmol/L BUN 15 (7-17) mg/dL Creatinine 0.68 (0.52-1.04) mg/dL Estimated GFR > 60 (>60) mL/min BUN/Creatinine Ratio 22.1 H (6-22) Glucose 93 (70-100) mg/dL Calcium 9.3 (8.4-10.2) mg/dL Lipase 123 (23-300) U/L Urine Color Urine Appearance Urine pH Ur Specific [place] Urine Protein Urine Glucose (UA) Urine Ketones Urine Occult Blood Urine Nitrate Urine Bilirubin Urine Urobilinogen Ur Leukocyte Esterase Urine RBC (0-5/HPF) Urine WBC (0-5/HPF) Ur Squamous Epith Cells (0-5/HPF) Urine Bacteria (None) Ur Culture Indicated? Urine Test (Negative) Discharge Plan Departure Patient Disposition: Home Clinical Impression: Abdominal pain Instructions: DI for Abdominal Pain-Adult Activity Restrictions/Additional Instructions: *You have been diagnosed with abdominal pain. * As we discussed your labs and CT scan and ultrasound imaging are very reassuring. There is no evidence of any severe diagnoses that would require a specific or immediate intervention. *What to do: *Please continue to take your regular medications as directed. [x ] New medication prescriptions sent to your pharmacy: [ [facility]] *Please follow up with your primary care provider in 2-3 days, call for an appointment. Let them know you were seen in the Emergency Department and that we ask that you be seen in follow up. We will electronically transmit a record of today's note if your PCP is in our system *Please consider a clear liquid diet for the next 24-48 hours and then slowly advance to regular as tolerated. Also, try to avoid alcohol, nicotine, caffeine, spicy, acidic or fatty foods as this may worsen your symptoms *If you do not have a primary care provider please contact the [facility] Resource line at [phone]. They will ask some questions about your medical history and help get you set up with a doctor in the community. *Return to Emergency Department if you should have any new, worsening or concerning symptoms, such as [fever greater than 101 F, shaking chills, worsening pain, persistent vomiting or other bothersome symptoms] Prescriptions: New ondansetron 4 mg tablet,disintegrating 4 mg PO Q6H PRN (Reason: nausea and vomiting) Qty: 10 0RF hyoscyamine sulfate 0.125 mg tablet,disintegrating 0.125 mg PO BID-QID PRN (Reason: dyspepsia) Qty: 7 0RF No Action methocarbamol 500 mg tablet 500 mg PO QID PRN (Reason: back spasms) Qty: 20 0RF oxycodone-acetaminophen [Percocet] 5-325 mg tablet 1 tab PO Q6H PRN (Reason: pain) Qty: 10 0RF quetiapine 25 mg tablet 50 mg PO BEDTIME citalopram 40 mg tablet 40 mg PO DAILY clonazepam 1 mg tablet 1 mg PO BID PRN (Reason: Anxiety) buspirone 10 mg tablet 10 mg PO TID PRN (Reason: Anxiety) hydroxyzine HCl 10 mg tablet 10 mg PO QID PRN (Reason: Anxiety) oxycodone-acetaminophen 5-325 mg tablet 1 tab PO Q8H PRN (Reason: pain) Qty: 10 0RF ketorolac 10 mg tablet 10 mg PO Q6H PRN (Reason: pain) Qty: 14 0RF ondansetron 4 mg tablet,disintegrating 4 mg PO TID-QID PRN (Reason: nausea and vomiting) Qty: 10 0RF fluticasone propionate [Flonase Allergy Relief] 50 mcg/actuation spray,suspension 2 spray intranasal DAILY Qty: 16 0RF Rx Instructions: administer into each nostril Referrals: Chayito Burleson DO [Primary Care Provider] - Stand Alone Forms: Patient Portal/API <Mahad Kaur MD - Last Filed: 11/30/22 08:32> Cosign ED Attending Cosignature Attestation: I was immediately available in the department for consultation. ?This documentation has been reviewed and I agree with assessment and plan. Supervised by Mahad Kaur MD
[2022-11-22] MEDS: KETOROLAC 30 MG/ML VIAL 15 MG IM (14:29)
[2022-11-22] MEDS: ONDANSETRON 4 MG ODT SL (14:33)
[2022-11-22 15:31] LABS: Add Manual Diff / Slide Review NO; Basophils Absolute Auto 100 /uL (0-100); Basophils Percent Auto 0.7 % (0-2); Eosinophils Absolute Auto 100 /uL (0-450); Hematocrit 36.7 % (36-46); Hemoglobin 12.4 g/dL (12.0-16.0); Lymphocytes Absolute Auto 2300 /uL (1100-4500); Lymphocytes Percent Auto 18.3 % (25-40); Mean Corpuscular HGB Conc 33.7 % (30-36); Mean Corpuscular Hemoglobin 28.7 PG (26-34); Mean Corpuscular Volume 85.2 fL (80-100); Monocytes Absolute Auto 700 /uL (0-900); Monocytes Percent Auto 5.6 % (3-14); Neutrophils Absolute Auto 9500 /uL (1500-7000); Neutrophils Percent Auto 74.4 % (50-75); Platelet Count 241 X10^3/uL (150-400); Red Blood Cell Count 4.31 X10^6/uL (4.0-5.2); White Blood Cell Count 12.8 X10^3/uL (4.5-11.0)
[2022-11-22] MEDS: SODIUM CHLORIDE 0.9% 1,000 ML 1000 ML IV (15:35)
[2022-11-22] MEDS: HYDROMORPHONE 0.5 MG INJ IV ×2 (15:35→16:07)
[2022-11-22 15:47] LABS: BUN Creatinine Ratio 22.1 (6-22); Blood Urea Nitrogen 15 mg/dL (7-17); Calcium 9.3 mg/dL (8.4-10.2); Carbon Dioxide 24 mmol/L (22-32); Chloride 101 mmol/L (98-107); Estimated Glomerular Filt Rate > 60 mL/min (>60); Glucose 93 mg/dL (70-100); HEMOLYSIS < 15 (0-50); Lipase 123 U/L (23-300); Potassium 3.2 mmol/L (3.4-5.1); Sodium 135 mmol/L (137-145)
[2022-11-22] MEDS: DICYCLOMINE 10 MG CAPSULE PO (16:07)
--- NOTE | 2022-11-22 16:13 | DI.CT.S_ITS ---
PROCEDURE: CT ABDOMEN PELVIS W CON INDICATIONS: abdominal pain TECHNIQUE: After the administration of IV contrast, axial sections were acquired from the lung bases to the pubic symphysis. Coronal and sagittal reformats were performed. For radiation dose reduction, the following was used: automated exposure control, adjustment of mA and/or kV according to patient size. COMPARISON: [facility], , US RENAL COMPLETE, 11/22/2022, 14:55. [facility], US, US PELVIC COMPLETE, 01/31/2022, 22:15. [facility], CT, CT KIDNEY URETER BLADDER (KUB), 01/31/2022, 20:28. FINDINGS: Image quality: Excellent. Lung bases: Unremarkable. Heart: No significant findings. ABDOMEN: Liver: Mild hepatic steatosis. Gallbladder: Unremarkable. Biliary ducts: Unremarkable. Pancreas: Unremarkable. Spleen: Unremarkable. Adrenal Glands: Unremarkable. Kidneys and Ureters: Unremarkable. Stomach and Bowel: Stomach, small bowel loops, and colon are unremarkable. Appendix is normal. Peritoneum: No abnormal intraperitoneal fluid. No free air. Ventral Wall: No hernia. Abdominal Nodes: No retroperitoneal or mesenteric adenopathy by size criteria. Vessels: Aorta and inferior vena cava are normal in size. PELVIS: Pelvic Organs: Unremarkable. Bladder: Unremarkable. Pelvic Nodes: No enlarged lymph nodes. Miscellaneous: No inguinal hernias are seen. Bones: Unremarkable. IMPRESSION: No visualized acute intra-abdominal or pelvic process. Dictated by: Yamile Monzon M.D. on 11/22/2022 at 17:08 Approved by: Yamile Monzon M.D. on 11/22/2022 at 17:10
[2022-11-22] MEDS: METOCLOPRAMIDE 10 MG/2 ML INJ IV (18:16)
--- NOTE | 2022-11-27 17:49 | PC.NURSE ---
Pt called requesting culture results / they are negative. Information given. She is currently being seen by a provider but encouraged to return to ED if any needs.
== END 2022-11-22 18:28 | disposition home or self-care (01) ==
PROVIDERS: Emergency Medicine; Emergency Provider Physician Assistant; PCP Student in an Organized Health Care Education/Training Program
DX: R10.9 Unspecified abdominal pain (principal); Z87.442 Personal history of urinary calculi; R31.9 Hematuria, unspecified
CPT/HCPCS: 36415; 74177; 76770; 80048; 81001; 81025; 83690; 85025; 87086; 96361; 96372; 96374; 96375; 96376; 99284; 99285; J1170; J1885; J2765; Q9967

== ENCOUNTER → 2023-04-26 15:26 | Outpatient (CLI) | payer OTHER, SELFPAY ==
--- NOTE | 2023-04-26 15:29 | DI.RAD.S_ITS ---
PROCEDURE: XR THORACIC SPINE 3V INDICATIONS: Thoracolumbar strain/injury TECHNIQUE: 3 views of the thoracic spine were acquired. COMPARISON: [facility], CR, XR LUMBAR SPINE 2-3V, 04/26/2023, 15:41. FINDINGS: Bones: No fractures or dislocations. No suspicious bony lesions. Mild degenerative disc changes throughout the thoracic spine. 12 pairs of ribs are noted, and appear intact where visualized. Soft tissues: No paravertebral stripe thickening. IMPRESSION: No fracture. No acute osseous lesion. If symptoms and/or clinical suspicion for pathology persists, evaluation with CT or MRI should be considered for further assessment. Dictated by: Aissatou Mars MD, PhD on 04/26/2023 at 16:08 Approved by: Aissatou Mars MD, PhD on 04/26/2023 at 16:08
--- NOTE | 2023-04-26 15:29 | DI.RAD.S_ITS ---
PROCEDURE: XR LUMBAR SPINE 2-3V INDICATIONS: Lumbar strain/injury TECHNIQUE: 3 views of the lumbar spine were acquired. COMPARISON: None. FINDINGS: Bones: 5 [id number] vertebrae are present. There is normal bony alignment. No vertebral body compression fractures. No suspicious bony lesions. Soft tissues: Overlying bowel gas pattern is normal. No suspicious soft tissue calcifications. IMPRESSION: No fracture. No acute osseous lesion. If symptoms and/or clinical suspicion for pathology persists, evaluation with CT will MRI should be considered for further assessment. Dictated by: Aissatou Mars MD, PhD on 04/26/2023 at 16:07 Approved by: Aissatou Mars MD, PhD on 04/26/2023 at 16:08
== END ==
PROVIDERS: PCP Student in an Organized Health Care Education/Training Program; Referring Provider Physician Assistant Surgical; Visit Provider Physician Assistant Surgical
DX: S39.012A Strain of muscle, fascia and tendon of lower back, initial encounter (principal); S29.012A Strain of muscle and tendon of back wall of thorax, initial encounter; X58.XXXA Exposure to other specified factors, initial encounter
CPT/HCPCS: 72072; 72100

== ENCOUNTER 2024-10-12 09:56 | Emergency (ER) | payer OTHER, SELFPAY ==
[2024-10-12 10:54] VITALS: BP 162/80; PULSE 77; RESP 18; TEMP 36.7; O2SAT 98; BMI 32.8
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
[2024-10-12 12:21] LABS: Alanine Aminotransferase 15 IU/L (<35)
[2024-10-12 12:56] VITALS: BP 140/68; PULSE 80; RESP 18; TEMP 36.9; O2SAT 99
[2024-10-12 13:12] LABS: HIV 1 & 2 Ab/Ag 4th Gen Combo NEGATIVE (NEGATIVE); Hep C Virus Ab w/Reflex Quant NEGATIVE s/c (NEGATIVE)
[2024-10-15 09:40] LABS: Hepatitis B Surf Ab Qualitativ Equivocal (.)
== END 2024-10-12 12:52 | disposition home or self-care (01) ==
PROVIDERS: Emergency Provider Physician Assistant; PCP Student in an Organized Health Care Education/Training Program
DX: Z77.21 Contact with and (suspected) exposure to potentially hazardous body fluids (principal); W46.1XXA Contact with contaminated hypodermic needle, initial encounter
CPT/HCPCS: 84460; 86706; 86803; 87389; 99281; 99283